=== PATIENT | male | born 1970 | race Caucasian/White ===

== ENCOUNTER 2025-04-19 14:06 | Inpatient (IN) | payer BC, SELFPAY ==
--- NOTE | ~2025-04-19 | CT_ITS ---
CLINICAL HISTORY: regional lymphadenopathy on A P CT r o malignancy CT chest without contrast Comparison: Prior CTs of abdomen and pelvis most recently on 04/19/2025 Findings: Limited evaluation of soft tissues and solid organs in the absence of IV contrast. No focal airspace consolidation. No pleural effusion. No pneumothorax. Mild bibasilar linear atelectatic changes. Central airways are patent. No masses or suspicious pulmonary nodules. Normal heart size. No pericardial effusion. No significant coronary artery calcifications. Normal caliber thoracic aorta and central pulmonary arteries. Unremarkable esophagus. No acute findings within visualized lower neck. Abdominal findings are described in detail in separate accompanying report. No acute osseous abnormality. No lytic or sclerotic osseous lesions. Impression: 1. No acute cardiopulmonary abnormality identified within limitation of this noncontrast exam. 2. Additional findings as above. This document has been electronically signed by: David Brennan MD on 04/19/2025 22:24:12
--- NOTE | ~2025-04-19 | CT_ITS ---
CLINICAL HISTORY: Painless jaundice ?pancreatic mass CT abdomen and pelvis with contrast Comparison: None provided Findings: No acute findings within visualized lung bases. Liver enhances homogeneously. No focal liver lesions. Adrenal glands and kidneys are unremarkable. Gallbladder is unremarkable. No intra or extrahepatic ductal dilation. Pancreas enhances homogeneously. No ductal dilation. There is moderately extensive stranding with associated regional lymphadenopathy in the central/left paramidline mid-abdominal mesentery mostly centered around the duodenal jejunal junction but also extending towards the pancreatic head/uncinate process. Borderline splenic enlargement measuring up to 14.7 cm. No free air or free fluid. Patent hepatic, portal, splenic and superior mesenteric veins. Unremarkable abdominal aorta and all visualized major mesenteric branches. Nondistended stomach. Normal caliber small bowel. No obstruction. Colon is unremarkable. Suggestion of prior appendectomy. Unremarkable urinary bladder. Normal-sized prostate. No acute osseous abnormality. No lytic or sclerotic osseous lesions. Impression: 1. Moderately extensive stranding within central/left paramidline mid-abdominal mesentery with associated regional lymphadenopathy. These findings are nonspecific and of indeterminate etiology. Differential diagnostic considerations include infectious or inflammatory mesenteritis however neoplastic infiltration may have similar appearance in the appropriate clinical setting and therefore can not be entirely excluded. Given the proximity of these findings to the head of the pancreas, correlation with pancreatic enzymes should be considered to exclude possibility of acute pancreatitis. Additional diagnostic considerations include portal hypertension, CHF or renal failure. If clinically indicated, further evaluation with abdominal ultrasound may be considered. No evidence of portal or mesenteric venous thrombosis. At minimum, close continued imaging follow-up with CT is recommended to evaluate for stability and evolution of these findings. This document has been electronically signed by: David Brennan MD on 04/19/2025 20:43:25
--- NOTE | ~2025-04-19 | MR_ITS ---
EXAMINATION: MR ABDOMEN WITHOUT AND WITH CONTRAST CLINICAL INFORMATION: Abnormal liver function tests. Lymphadenopathy. COMPARISON: Correlated to CT dated April 19, 2025 TECHNIQUE: MR abdomen was performed without and with use of 9.7 mL intravenous (Gadavist) gadolinium contrast. Postcontrast images are performed in multiphase dynamic sequences. Imaging was performed in 3 planes. No reported immediate complications FINDINGS: LUNG BASES: No enhancing mass. LIVER, GALLBLADDER, AND BILIARY TREE: Liver measures 15 cm. No enhancing lesion. Main portal vein and hepatic veins and intrahepatic portion of the IVC are patent. No intrahepatic biliary ductal dilatation. Gallbladder is fluid-filled without distention. No pericholecystic fluid collection or gallbladder wall thickening. Common bile duct measures 3 mm. PANCREAS: No focal mass. No peripancreatic fluid collection. No main pancreatic ductal dilatation. Reduced volume of the parenchyma. SPLEEN: 12 cm. Accessory spleen. No focal mass. ADRENAL GLANDS: No nodular lesions. KIDNEYS AND URETERS: Subcentimeter cyst mostly in the left kidney. Normal enhancement pattern of the parenchyma. No focal mass. No hydronephrosis. The ureters are not dilated. GASTROINTESTINAL TRACT: Abundant stool, large intestine. No intestinal obstruction pattern. Food contents in the stomach. No ascites. ABDOMINAL WALL: Diastases abdominal rectus muscles and the proper umbilical region and likely status post mesh. LYMPH NODES: Prominent mesenteric lymph nodes with the edema pattern. VASCULAR: No aneurysm or dissection, abdominal aorta. OSSEOUS STRUCTURES: Multilevel thoracolumbar spondylosis. Probable intraosseous hemangioma at L1 and L2. Disc herniation versus disc bulging at L5-S1 no fully evaluated. MR/MR abdomen wo/w con IMPRESSION: Mesenteric panniculitis. There is a lengthy differential diagnostic considerations which include lymphoproliferative disorder such as lymphoma among other etiologies. No enhancing mass, hepatic or splenic. Splenomegaly, mild. Electronically signed by: Hair Oliver MD 04/21/2025 01:22 PM EDT
--- NOTE | ~2025-04-19 | US_ITS ---
EXAMINATION: US ABDOMEN LIMITED HISTORY: ?resolving pancreatitis, abnl LFT's, R/O gallstones TECHNIQUE: Real-time grayscale ultrasound imaging of the liver, gallbladder, and pancreas was performed and images were reviewed. COMPARISON: Correlation is made with a CT of the abdomen with contrast dated 04/19/2025. FINDINGS: Liver: The right lobe of the liver measures 15.8 cm in size. The left lobe of the liver measures 10.6 cm in size. The liver demonstrates increased echotexture, consistent with steatosis. No focal mass or intrahepatic biliary ductal dilatation is identified. There is normal hepatopedal flow in the portal vein. Gallbladder and biliary tree: There is a 3 mm gallbladder polyp. The gallbladder is otherwise unremarkable, without evidence of calculi, wall thickening, or pericholecystic fluid. There is no sonographic Rooney sign. The common bile duct measures 8 mm in. Pancreas: The pancreatic head, neck, and body are unremarkable. The pancreatic tail is obscured by bowel gas. There is no free fluid in the right upper quadrant. US/US abdomen limited IMPRESSION: 3 mm gallbladder polyp. No evidence of cholelithiasis. Mild prominence of the common bile duct. If there is clinical concern for choledocholithiasis, MRCP could be performed. Electronically signed by: Jacky Brown MD 04/21/2025 09:56 AM EDT
[2025-04-19 14:14] VITALS: BP 130/78; PULSE 88; RESP 16; TEMP 36.6; O2SAT 98; BMI 34.8
--- NOTE | 2025-04-19 14:14 | ED.GENADULT ---
HPI - General Adult General Chief complaint: Recheck/Abnormal Lab/Rx Stated complaint: Liver levels to high, DR patel, headache, chills, Time Seen by Provider: 04/19/25 17:36 Source: patient Mode of arrival: ambulatory Limitations: no limitations History of Present Illness ED Provider: HPI narrative: Patient with no significant past medical history no history of any liver disease no history of alcohol use apparently had vomiting and diarrhea last week which lasted for 2 days after that patient has still been feeling weak with poor appetite that is why he went to see his PCP who did the labs which showed elevated liver enzymes patient's have some epigastric discomfort after the vomiting started otherwise prior to this episode patient never had any GI symptoms no weight loss no family history of pancreatic cancer patient has had normal bowel movements no melena Related Data Home Medications ?Medication ?Instructions ?Recorded ?Confirmed atorvastatin 10 mg tablet 10 mg PO DAILY 04/19/25 04/19/25 ezetimibe 10 mg tablet 10 mg PO DAILY 04/19/25 04/19/25 glipizide 10 mg tablet, extended 10 mg PO BID 04/19/25 04/19/25 release 24 hr lisinopril 5 mg tablet 5 mg PO DAILY 04/19/25 04/19/25 meloxicam 7.5 mg tablet 7.5 mg PO DAILY 04/19/25 04/19/25 wbwvrxxo-ls-ninfi 300 mcg-K 60 1 tab PO DAILY 04/19/25 04/19/25 mcg-lycop 600 mcg-lutein 300 mcg tablet (Centrum Silver Men) omeprazole 40 mg capsule,delayed 40 mg PO DAILY@0630 04/19/25 04/19/25 release pioglitazone 30 mg tablet 30 mg PO DAILY 04/19/25 04/19/25 Allergies Allergy/AdvReac Type Severity Reaction Status Date / Time No Known Allergies Allergy Verified 04/19/25 14:16 Review of Systems Review of Systems: Yes all other systems are reviewed and are negative PMFSH Past Medical History Medical History (Updated 04/20/25 @ 01:43 by Kyree Tovar MD) Type 2 diabetes mellitus without complications Class 2 obesity HLD (hyperlipidemia) HTN (hypertension) Social History Social History Advance Directives: No Advance Directives Information Provided: Yes Do you have a plan to hurt others: No Plan Physical Exam ED Vital Signs: Vital Signs - 24 hr 04/19/25 14:14 04/19/25 16:29 04/19/25 18:11 Temperature 97.8 F 98.5 F Pulse Rate 88 77 78 Respiratory Rate 16 18 18 Blood Pressure 130/78 127/74 122/74 Pulse Oximetry 98 98 94 Oxygen Delivery Method Room Air Room Air 04/19/25 19:31 Temperature 98.1 F Pulse Rate 75 Respiratory Rate 18 Blood Pressure 118/70 Pulse Oximetry 96 Oxygen Delivery Method Room Air BMI result Body Mass Index 34.8 Appearance: Alert. Oriented X3. No acute distress. Eyes: Icterus++ ENT: Pharynx normal. Oral Mucosa moist Neck: Normal inspection. Neck supple. CVS: Normal heart rate and rhythm. Pulses normal. Respiratory: No respiratory distress. Equal air entry bilateral, no wheezing/rales/rhonchi Abdomen: Soft and mild epigastric tenderness, . Bowel sounds are present, no mass palpable, no CVA tenderness Skin: Skin warm and dry. Normal skin color. Normal skin turgor. Extremities: No lower extremity edema. No calf tenderness Neuro: Oriented X 3. No motor deficit. No sensory deficit.No cerebellar signs , cranial nerves II-XII intact Course Course Course Narrative: This is a rapid medical exam performed by Sissy Merchant NP: Additional HPI, ROS, PE not included below will be deferred to primary provider. Patient is a 55-year-old male referred to the ED by PCP for elevated LFTs, alk phos. Patient states last Wed had N/V/D for a few days, ongoing lightheadedness, sweats, chills. Plan: repeat labs Medications Administered Generic Name Dose Route Start Last Admin Trade Name Freq PRN Reason Stop Dose Admin Enoxaparin Sodium 40 mg 04/19/25 22:15 04/19/25 22:33 Enoxaparin Sodium 40 Mg/0.4 Ml Syringe SUBCUT 40 mg Q24H DUSTIN Administration Sodium Chloride 3 ml 04/20/25 00:00 04/20/25 00:17 0.9 % Sodium Chloride Flush 3 Ml Syringe IVFLUSH Not Given QSHIFT DUSTIN Discontinued Medications Generic Name Dose Route Start Last Admin Trade Name Freq PRN Reason Stop Dose Admin Iohexol 85 ml 04/19/25 19:59 04/19/25 19:59 Iohexol 350 Mg/Ml 100 Ml Infus..Btl IV 04/19/25 20:00 85 ml ONCE ONE Administration Potassium Chloride 40 meq 04/19/25 21:37 04/19/25 21:54 Potassium Chloride Packet 20 Meq Packet PO 04/19/25 21:38 40 meq ONCE ONE Administration Medical Decision Making Medical Decision Making [facility] Narrative: Patient with direct hyperbilirubinemia etiology not clear CT scan showed nonspecific changes in the mesentery with lymphadenopathy no pancreatic mass noticed will admit patient for further evaluation may need MRI and GI consultation for acute cause of hyperbilirubinemia Differential Diagnosis Differential Diagnoses: The differential diagnosis associated with the presentation includes Autoimmune hepatitis/pancreatic cancer/metastatic etiology Admission/Observation Consideration of admission/observation: Escalation of care including admission/observation considered Consult Healthcare Provider Management of the patient was discussed with: Hospitalist Lab Data [facility] Lab Attestation statement: I reviewed the patient's lab results. 04/19/25 14:28 04/19/25 14:28 Labs: Lab Results 04/19/25 04/19/25 04/19/25 Range/Units 14:28 18:50 19:27 WBC 3.8 L (4.8-10.8) X10*3/uL RBC 4.82 (4.60-5.80) X10*6/uL Hgb 14.5 (14.0-18.0) g/dl Hct 39.2 L (42.0-52.0) % MCV 81.3 (80.0-98.0) fL MCH 30.1 (27.0-33.0) pg MCHC 37.0 H (31.0-36.0) g/dl RDW 13.0 (11.0-16.0) % Plt Count 161 (160-400) X10*3/uL MPV 9.3 L (9.4-12.4) fL Immature Gran % (Auto) 0.8 H (0.0-0.4) % Neut % (Auto) 67.6 (45-73) % Lymph % (Auto) 19.7 L (20-40) % [place] % (Auto) 8.2 (2-11) % Eos % (Auto) 3.4 (0-4) % Baso % (Auto) 0.3 (0-2) % Lymph # (Auto) 0.8 L (1.2-4.9) X10*3/uL [place] # (Auto) 0.3 (0.1-1.2) X10*3/uL Eos # (Auto) 0.1 (0.0-0.4) X10*3/uL Baso # (Auto) 0.0 (0.0-0.2) X10*3/uL Abs Immat Gran (auto) 0.03 (0.00-0.03) X10*3/uL Absolute Neuts (auto) 2.6 (2.0-8.3) x10*3/uL Absolute Nucleated RBC 0.000 (0.0-0.012) X10*3/uL Nucleated RBC % (auto) 0.0 (0.0-0.2) /100WBC PT 11.8 (10.9-12.4) SEC INR 1.0 (0.9-1.1) APTT 27.0 (26.7-34.1) SEC Sodium 140 (135-145) mmol/L Potassium 3.1 L (3.3-5.1) mmol/L Chloride 102 (96-108) mmol/L Carbon Dioxide 29 (22-29) mmol/L Anion Gap 12 (12-20) BUN 10 (9-16) mg/dL Creatinine 0.63 (0.5-1.4) mg/dL Estim Creat Clear Calc 164.6 Estimated GFR > 60 Random Glucose 182 H (60-115) mg/dL Calcium 8.8 (8.4-10.2) mg/dL Total Bilirubin 6.7 H (0.0-1.0) mg/dL Direct Bilirubin 5.1 H (0.0-0.5) mg/dL AST 486 H (5-37) U/L ALT 511 H (0-40) U/L Alkaline Phosphatase 565 H (39-117) U/L Ammonia 37 (13-55) umol/L Lactate Dehydrogenase 648 H (118-273) U/L Total Creatine Kinase 681 H (38-174) U/L Total Protein 6.5 (6.5-8.0) g/dL Albumin 3.6 (3.5-5.0) g/dL Lipase 81 H (8-78) U/L Independent Interpretation I performed an independent interpretation of an: CT Scan Radiology Impression Discussion of test interpretation with radiology: I have reviewed the radiologist's reading. Radiologist Impression: [address] [address] [address] Scan Report Signed Patient: Xavi Hutton MR#: [id number] : 1970 Acct:[id number] Age/Sex: 55 / M ADM Date: 04/19/25 Loc: HO.ED Attending Dr: Ordering Physician: Kyree Tovar MD Date of Service: 04/19/25 Procedure(s): CT abdomen pelvis w IV con Accession Number(s): [id number] cc: THEO KAISER MD; Kyree Tovar MD~ Report Number: [id number]: Total DLP = 832.00 mGy-cm CLINICAL HISTORY: Painless jaundice ?pancreatic mass CT abdomen and pelvis with contrast Comparison: None provided Findings: No acute findings within visualized lung bases. Liver enhances homogeneously. No focal liver lesions. Adrenal glands and kidneys are unremarkable. Gallbladder is unremarkable. No intra or extrahepatic ductal dilation. Pancreas enhances homogeneously. No ductal dilation. There is moderately extensive stranding with associated regional lymphadenopathy in the central/left paramidline mid-abdominal mesentery mostly centered around the duodenal jejunal junction but also extending towards the pancreatic head/uncinate process. Borderline splenic enlargement measuring up to 14.7 cm. No free air or free fluid. Patent hepatic, portal, splenic and superior mesenteric veins. Unremarkable abdominal aorta and all visualized major mesenteric branches. Nondistended stomach. Normal caliber small bowel. No obstruction. Colon is unremarkable. Suggestion of prior appendectomy. Unremarkable urinary bladder. Normal-sized prostate. No acute osseous abnormality. No lytic or sclerotic osseous lesions. Impression: 1. Moderately extensive stranding within central/left paramidline mid-abdominal mesentery with associated regional lymphadenopathy. These findings are nonspecific and of indeterminate etiology. Differential diagnostic considerations include infectious or inflammatory mesenteritis however neoplastic infiltration may have similar appearance in the appropriate clinical setting and therefore can not be entirely excluded. Given the proximity of these findings to the head of the pancreas, correlation with pancreatic enzymes should be considered to exclude possibility of acute pancreatitis. Additional diagnostic considerations include portal hypertension, CHF or renal failure. If clinically indicated, further evaluation with abdominal ultrasound may be considered. No evidence of portal or mesenteric venous thrombosis. At minimum, close continued imaging follow-up with CT is recommended to evaluate for stability and evolution of these findings. Discharge Plan Discharge Clinical Impression: Elevated LFTs, Painless jaundice Patient Disposition: Admitted As Inpatient
[2025-04-19 14:39] LABS: MANUAL DIFF FLAG NO
[2025-04-19 14:41] LABS: Hematocrit 39.2 % (42.0-52.0); Hemoglobin 14.5 g/dl (14.0-18.0); Imm Gran Abs Auto 0.03 X10*3/uL (0.00-0.03); Imm Gran Pct Auto 0.8 % (0.0-0.4); Lymphocytes Absolute Auto 0.8 X10*3/uL (1.2-4.9); Mean Corpuscular HGB Conc 37.0 g/dl (31.0-36.0); Mean Corpuscular Hemoglobin 30.1 pg (27.0-33.0); Mean Corpuscular Volume 81.3 fL (80.0-98.0); NRBC Abs Auto 0.000 X10*3/uL (0.0-0.012); NRBC Pct Auto 0.0 /100WBC (0.0-0.2); Platelet Count 161 X10*3/uL (160-400); Red Blood Count 4.82 X10*6/uL (4.60-5.80); White Blood Count 3.8 X10*3/uL (4.8-10.8)
[2025-04-19 14:55] LABS: Alanine Aminotransferase 511 U/L (0-40); Albumin Level 3.6 g/dL (3.5-5.0); Alkaline Phosphatase 565 U/L (39-117); Anion Gap 12 (12-20); Aspartate Amino Transferase 486 U/L (5-37); Blood Urea Nitrogen 10 mg/dL (9-16); Calcium 8.8 mg/dL (8.4-10.2); Carbon Dioxide 29 mmol/L (22-29); Chloride 102 mmol/L (96-108); Creatinine Clr Calc Pharmacy 164.6; Estimated Glomerular Filt Rate > 60; Lipase 81 U/L (8-78); Potassium 3.1 mmol/L (3.3-5.1); Sodium 140 mmol/L (135-145); Total Protein 6.5 g/dL (6.5-8.0)
[2025-04-19 16:29] VITALS: BP 127/74; PULSE 77; RESP 18; TEMP 36.9; O2SAT 98
--- OUTSIDE RECORDS SUMMARY | 2025-04-19 16:53 | XMS_ITS ---
Author Name [facility] Organization Unknown Care Team Organization Name Specialty Phone Email Start Date End Da te [facility] Nisha Dumont Primary Care 01/12/2023 024 [facility] Thea Cote MD Primary Care 11/12/2022 04/25/2024 [facility] Anita Pratt Primary Care 07/15/2022
[2025-04-19 18:11] VITALS: BP 122/74; PULSE 78; RESP 18; O2SAT 94
--- NOTE | 2025-04-19 18:15 | MHC.EDTECH ---
PATIENT WAS ASKED IF HE HAS ANY FAMILY THAT FROM PANCREATIC CANCER AND THE PATIENT SAID NO ...BUT THE PATIENT SAID HIS FATHER OF PANCREATIC CANCER IN 2006
[2025-04-19 19:01] LABS: Ammonia 37 umol/L (13-55)
[2025-04-19 19:31] VITALS: BP 118/70; PULSE 75; RESP 18; TEMP 36.7; O2SAT 96
[2025-04-19 19:39] LABS: INTERNATIONAL NORM RATIO 1.0 (0.9-1.1); Prothrombin Time 11.8 SEC (10.9-12.4)
[2025-04-19 19:42] LABS: Partial Thromboplastin Time 27.0 SEC (26.7-34.1)
[2025-04-19] MEDS: iohexoL 350 MG/ML 100 ML INFUS..BTL 85 ML IV (19:59)
--- NOTE | 2025-04-19 21:48 | PHA.MEDREC ---
Addendum entered by Andrea Bolaños PharmD 04/19/25 21:56: reviewed Original Note: Pharmacy Consult ? Medication Reconciliation Pharmacy has completed the medication reconciliation. Patient had a list of medications on his phone. Everything matched claim history.
[2025-04-19] MEDS: Potassium Chloride Packet 20 MEQ PACKET 40 MEQ PO (21:54)
--- NOTE | 2025-04-19 22:16 | P.HPHOSP_ITS ---
History of Present Illness Date of Service: 04/19/25 Attending physician on admission: Ran Kiser Chief Complaint: abnormal labs Patient is a 55-year-old male with a past medical history significant for type 2 diabetes, hypertension, hyperlipidemia and class 2 obesity, who presented to the ED due to abnormal labs with his PCP. Reports about 1 week ago he had vomiting and diarrhea for 1 day and since has had poor appetite and continued weakness. The diarrhea and vomiting have subsided however he has not been able to return to his normal diet due to his decreased appetite. He reports yesterday he started having epigastric discomfort, mostly just with palpation. He denies any weight loss. He also notes significant sweats since the beginning of his symptoms, his notes that he will put on a clean certain 10 minutes later his shirt is soaked. He also experiences chills. He reports 2 days ago he was having dark-colored urine and has been working on increasing fluid intake as he feels his urine was concentrated. He also has developed painless jaundice, specifically scleral icterus. He denies heavy alcohol use, only social occasional. No family history of pancreatic cancer. No hx of IDVU, no recent travel. Review of Systems 2 Constitutional: Constitutional: Denies body ache(s), Reports chills, Reports fatigue, Denies headache(s), Reports lethargy and Denies weight loss C omments: sweats ENT: Denies headache(s), Denies nasal congestion, Denies nasal discharge and Denies sore throat Cardiovascular: Cardiovascular: Denies chest pain, Denies rapid heart rate, Denies leg edema, Denies lightheadedness and Denies dyspnea Respiratory: Respiratory: Denies chest congestion, Denies cough, Denies dyspnea and Denies wheezing Gastrointestinal: Gastrointestinal: Reports as per HPI Genitourinary: Genitourinary: Denies dysuria and Denies urinary frequency Musculoskeletal: Musculoskeletal: Denies back pain, Denies muscle cramps and Denies muscle weakness Integumentary/Breasts: Skin/Breast: Denies rash Neurologic: Denies confusion and Denies headache(s) Psychiatric: Psychiatric: Denies confusion Endocrine: Endocrine: Reports fatigue Hematologic/Lymphatic: Hematologic/Lymphatic: Denies easy bleeding and Denies easy bruising Allergic/Immunologic: Allergic/Immunologic: Denies wheezing [facility] Medical History (Updated 04/19/25 @ 22:23 by Kathrin Hollins PA-C) Type 2 diabetes mellitus without complications Class 2 obesity HLD (hyperlipidemia) HTN (hypertension) Social History Advance Directives: No Advance Directives Information Provided: Yes Do you have a plan to hurt others: No Plan Meds Allergies Allergy/AdvReac Type Severity Reaction Status Date / Time No Known Allergies Allergy Verified 04/19/25 14:16 Active Medications: Current Medications Acetaminophen (Acetaminophen 325 Mg Tablet) 650 mg PO Q6H PRN PRN Reason: Pain, Mild 1-3,fever,headache Calcium Carbonate (Calcium Carbonate 750 Mg Tab.Chew) 750 mg PO Q4H PRN PRN Reason: Heartburn Dextrose (Dextrose 50 % 25 Gm/50 Ml Syringe) 25 gm IVPUSH Q15M PRN; Protocol PRN Reason: per Hypoglycemia Standing Ord. Enoxaparin Sodium (Enoxaparin Sodium 40 Mg/0.4 Ml Syringe) 40 mg SUBCUT Q24H DUSTIN Glucose (Glucose Gel 15 Gm Gel..Gram.) 15 gm PO Q15M PRN; Protocol PRN Reason: per Hypoglycemia Standing Ord. Insulin Human Lispro (Insulin Lispro 100 Unit/Ml 3 Ml Vial) 0 unit SUBCUT QIDACHS [facility]; Protocol Lisinopril (Lisinopril 5 Mg Tablet) 5 mg PO DAILY DUSTIN; Protocol Magnesium Hydroxide (Milk Of Magnesia 30 Ml Oral.Susp) 30 ml PO DAILY PRN PRN Reason: Constipation Melatonin (Melatonin 3 Mg Tablet) 6 mg PO BEDTIME PRN PRN Reason: Insomnia Omeprazole (Omeprazole 40 Mg Capsule.Dr) 40 mg PO DAILY@0630 [facility] Ondansetron HCl (Ondansetron Hcl 4 Mg/2 Ml Vial) 4 mg IVPUSH Q8H PRN PRN Reason: Nausea and Vomiting Oxycodone HCl (Oxycodone Hcl Immed Release 5 Mg Tablet) 5 mg PO Q6H PRN PRN Reason: Pain, Severe (Pain Scale 7-10) Sodium Chloride (0.9 % Sodium Chloride Flush 3 Ml Syringe) 3 [facility] Home Medications ?Medication ?Instructions ?Recorded ?Confirmed ?Last Taken ?Type atorvastatin 10 mg tablet 10 mg PO DAILY 04/19/2504/0704/19/25 History ezetimibe 10 mg tablet 10 mg PO DAILY 04/19/2504/0704/19/25 History glipizide 10 mg tablet, extended 10 mg PO BID 04/19/25 04/19/25 04/19/25 History release 24 hr lisinopril 5 mg tablet 5 mg PO DAILY 04/19/2504/1904/19/25 History meloxicam 7.5 mg tablet 7.5 mg PO DAILY 04/19/2504/19/25 History xjqzoiol-cp-hvwzv 300 mcg-K 60 1 tab PO DAILY 04/19/25 04/19/25 04/19/25 History mcg-lycop 600 mcg-lutein 300 mcg tablet (Centrum [place] Men) omeprazole 40 mg capsule,delayed 40 mg PO DAILY@0630 0 04/19/25 04/19/25 04/19/25 History release pioglitazone 30 mg tablet 30 mg PO DAILY 04/19/2504/0704/19/25 History Physical Exam 2 Vital Signs and Narrative: Vital Signs: Last Vital Signs Temp 98.1 F 04/19/25 19:31 Pulse 75 04/19/25 19:31 Resp 18 04/19/25 19:31 BP 118/70 04/19/25 19:31 Pulse Ox 96 04/19/25 19:31 O2 Del Method Room Air 04/19/25 19:31 BMI result Body Mass Index 34.8 General: AOx3, no acute distress, seen with who is technical editor here Resp: CTA bilaterally CVS: S1, S2, RRR GI: +BS, mild tenderness epigastric region, no distention. scleral icterus. Skin: Warm, dry Neuro: Cranial nerves II-XII grossly intact bilaterally. Motor grossly intact bilaterally Extremities: No LE edema Psych: Appropriate affect Const: General: No confusion Orientation/consciousness: No confusion Neuro: General: No confusion Results Labs 04/19/25 14:28 04/19/25 14:28 Labs: Laboratory Results - last 24 hr 04/19/25 04/19/25 04/19/25 14:28 18:50 19:27 MCV 81.3 MCH 30.1 MCHC 37.0 H RDW 13.0 Plt Count 161 MPV 9.3 L Immature Gran % (Auto) 0.8 H Neut % (Auto) 67.6 Lymph % (Auto) 19.7 L [place] % (Auto) 8.2 Eos % (Auto) 3.4 Baso % (Auto) 0.3 Lymph # (Auto) 0.8 L [place] # (Auto) 0.3 Eos # (Auto) 0.1 Baso # (Auto) 0.0 Abs Immat Gran (auto) 0.03 Absolute Neuts (auto) 2.6 Absolute Nucleated RBC 0.000 Nucleated RBC % (auto) 0.0 PT 11.8 INR 1.0 APTT 27.0 Anion Gap 12 Estim Creat Clear Calc 164.6 Estimated GFR > 60 Random Glucose 182 H Calcium 8.8 Total Bilirubin 6.7 H Direct Bilirubin 5.1 H AST 486 H ALT 511 H Alkaline Phosphatase 565 H Ammonia 37 Lactate Dehydrogenase 648 H Total Creatine Kinase 681 H Total Protein 6.5 Albumin 3.6 Lipase 81 H Assessment and Plan (1) Elevated LFTs: Status: Acute (2) Painless jaundice: Status: Acute (3) Mesenteric lymphadenopathy: Status: Acute (4) Acute hypokalemia: Status: Acute (5) Class 2 obesity: Status: Acute Plan Patient is a 55-year-old male with a past medical history significant for type 2 diabetes, hypertension, hyperlipidemia and class 2 obesity, who presented to the ED due to abnormal labs with his PCP. elevated LFTS, painless jaundice, mesenteric lymphadenopathy - recent GI illness, sx resolved but continued weakness and poor appetite - seen by PCP today with significantly elevated LFTs, advised to go to ED - AST 486, ALT 511, alk phos 565, t bili 6.7 ,d bili 5.1, LDH 668, lipase 81 - no leukocytosis or fever, tolerating PO without pain or nausea - A/P CT with Moderately extensive stranding within central/left paramidline mid-abdominal mesentery with associated regional lymphadenopathy. These findings are nonspecific and of indeterminate etiology. Differential diagnostic considerations include infectious or inflammatory mesenteritis however neoplastic infiltration may have similar appearance in the appropriate clinical setting and therefore can not be entirely excluded. Given the proximity of these findings to the head of the pancreas, correlation with pancreatic enzymes should be considered to exclude possibility of acute pancreatitis. Additional diagnostic considerations include portal hypertension, CHF or renal failure. If clinically indicated, further evaluation with abdominal ultrasound may be considered. No evidence of portal or mesenteric venous thrombosis. At minimum, close continued imaging follow-up with CT is recommended to evaluate for stability and evolution of these findings. - hepatitis pain ordered - CT chest to assess for malignancy - GI consult - follow CBC and CMP acute hypokalemia - K 3.1 - given 40meq PO K - repeat lytes in AM T2DM - hold PO DM meds - sliding scale insulin - diabetic diet HTN - continue lisinopril HLD - hold statin and ezetimibe due to elevated LFTs class 2 obestiy - BMI 34.8 - weight loss encouraged full code VTE prophy: lovenox Patient with elevated LFTs, painless jaundice and acute mesenteric lymphadenopathy, requiring admission for at least 2 midnight stay for further evaluation and retail analytics manager consultation. Quality Stroke Does the patient have a stroke diagnosis?: No VTE Prior VTE?: No VTE Risk Level:: Medical - moderate - high VTE Device Contraindication: Treatment Not Indicated VTE Drug Contraindication: N/A - Med Ordered
[2025-04-19 22:32] VITALS: BP 118/70; PULSE 79
--- NOTE | 2025-04-19 22:37 | PC.NURSE ---
Addendum entered by Jennifer Negrete RN 04/19/25 22:38: LR note in error Original Note: pt medicated per NOV. Lactated ringers d/c per order.
--- NOTE | 2025-04-19 22:49 | PC.NURSE ---
verbal report given to RAE Montelongo in overflow.
[2025-04-20] VITALS (9 sets, daily range): BP systolic 115–142; BP diastolic 64–80; PULSE 62–80; RESP 16–20; TEMP 36.1–37; O2SAT 95–99
[2025-04-20 01:44] LABS: Carcinoembryonic Antigen 1.90 ng/mL
[2025-04-20 04:36] LABS: HBS Num1 0.00 mIU/mL (0-7.99); HBc Num1 0.04 S/CO (0.00-0.79); HBsAGNum1 0.43 S/CO (0.00-0.99); Hepatitis A Antibody IgM 0.15 Index (0-0.79); Hepatitis B Surface Antigen Negative (Negative); ~HepC Num1 0.08 S/CO (0.00-0.79); ~Hepatitis A Antibody IgM Nonreactive (Nonreactive); ~Hepatitis B Surface Antibody NONREACTIVE (Nonreactive); ~Hepatitis C Antibody Nonreactive (Nonreactive)
[2025-04-20 05:43] LABS: Hematocrit 36.7 % (42.0-52.0); Hemoglobin 13.2 g/dl (14.0-18.0); Mean Corpuscular HGB Conc 36.0 g/dl (31.0-36.0); Mean Corpuscular Hemoglobin 29.9 pg (27.0-33.0); Mean Corpuscular Volume 83.2 fL (80.0-98.0); NRBC Abs Auto 0.000 X10*3/uL (0.0-0.012); NRBC Pct Auto 0.0 /100WBC (0.0-0.2); Platelet Count 165 X10*3/uL (160-400); Red Blood Count 4.41 X10*6/uL (4.60-5.80); White Blood Count 4.4 X10*3/uL (4.8-10.8)
[2025-04-20 05:52] LABS: Alanine Aminotransferase 529 U/L (0-40); Albumin Level 3.3 g/dL (3.5-5.0); Alkaline Phosphatase 580 U/L (39-117); Anion Gap 14 (12-20); Aspartate Amino Transferase 459 U/L (5-37); Blood Urea Nitrogen 10 mg/dL (9-16); Calcium 8.6 mg/dL (8.4-10.2); Carbon Dioxide 28 mmol/L (22-29); Chloride 103 mmol/L (96-108); Creatinine Clr Calc Pharmacy 140.1; Estimated Glomerular Filt Rate > 60; Potassium 3.5 mmol/L (3.3-5.1); Sodium 141 mmol/L (135-145); Total Protein 6.0 g/dL (6.5-8.0)
[2025-04-20 07:32] LABS: Glucose, Whole Blood 152 mg/dL (60-115)
[2025-04-20] MEDS: 0.9 % Sodium Chloride Flush 3 ML SYRINGE IVFLUSH (08:41)
--- NOTE | 2025-04-20 09:42 | P.PNIM_ITS ---
Subjective Subjective Date of Service: 04/20/25 Interval History: Patient was seen and examined and discussed with nursing, no overnight events. On exam he feels comfortable. Denies any abdominal pain or discomfort, no further vomiting or diarrhea. Labs reviewed, await GI input. Vital signs are stable. Patient reporting mild anxiety and insomnia Review of Systems Denies any shortness of breath, chest pain, dizziness, lightheadedness, abdominal pain or discomfort, nausea vomiting or diarrhea Physical Exam 2 Exam: Exam: CONST: Alert and oriented, in NAD. Well nourished HEENT: Normocephalic, atraumatic, MMM,Neck supple, scleral icterus. RESP: Lungs clear, RRR even and regular HEART:,RRR, S1, S2. No murmur, no edema GI:Abdomen Soft NT, ND. + BS times four :Deferred SKIN: Warm dry and intact, no visible lesions or rashes NEURO:CN II-XII Intact bilaterally, Sensation intact. Speech clear PSYCH: Normal affect Vital Signs: Vital Signs: Last Vital Signs Temp 97.9 F 04/20/25 09:36 Pulse 71 04/20/25 09:36 Resp 17 04/20/25 09:36 BP 133/68 04/20/25 09:36 Pulse Ox 96 04/20/25 09:36 O2 Del Method Room Air 04/20/25 09:36 BMI result Body Mass Index 34.8 Objective Data Active Medications Acetaminophen (Acetaminophen 325 Mg Tablet) 650 mg PO Q6H PRN PRN Reason: Pain, Mild 1-3,fever,headache Calcium Carbonate (Calcium Carbonate 750 Mg Tab.Chew) 750 mg PO Q4H PRN PRN Reason: Heartburn Dextrose (Dextrose 50 % 25 Gm/50 Ml Syringe) 25 gm IVPUSH Q15M PRN; Protocol PRN Reason: per Hypoglycemia Standing Ord. Enoxaparin Sodium (Enoxaparin Sodium 40 Mg/0.4 Ml Syringe) 40 mg SUBCUT Q24H [facility] Last Admin: 04/19/25 22:33 Dose: 40 mg Documented By: ARIANA Glucose (Glucose Gel 15 Gm Gel..Gram.) 15 gm PO Q15M PRN; Protocol PRN Reason: per Hypoglycemia Standing Ord. Insulin Human Lispro (Insulin Lispro 100 Unit/Ml 3 Ml Vial) 0 unit SUBCUT QIDACHS [facility]; Protocol Last Admin: 04/20/25 08:41 Dose: 2 unit Documented By: NEVIN Lisinopril (Lisinopril 5 Mg Tablet) 5 mg PO DAILY [facility]; Protocol Last Admin: 04/20/25 08:42 Dose: 5 mg Documented By: NEVIN Magnesium Hydroxide (Milk Of Magnesia 30 Ml Oral.Susp) 30 ml PO DAILY PRN PRN Reason: Constipation Melatonin (Melatonin 3 Mg Tablet) 6 mg PO BEDTIME PRN PRN Reason: Insomnia Omeprazole (Omeprazole 40 Mg Capsule.Dr) 40 mg PO DAILY@0630 [facility] Last Admin: 04/20/25 05:46 Dose: 40 mg Documented By: ANICETO Ondansetron HCl (Ondansetron Hcl 4 Mg/2 Ml Vial) 4 mg IVPUSH Q8H PRN PRN Reason: Nausea and Vomiting Oxycodone HCl (Oxycodone Hcl Immed Release 5 Mg Tablet) 5 mg PO Q6H PRN PRN Reason: Pain, Severe (Pain Scale 7-10) Sodium Chloride (0.9 % Sodium Chloride Flush 3 Ml Syringe) 3 ml IVFLUSH QSHIFT [facility] Last Admin: 04/20/25 08:41 Dose: 3 ml Documented By: NEVIN Labs 04/20/25 03:42 04/20/25 03:42 Labs: Laboratory Results - last 24 hr 04/19/25 04/19/25 04/19/25 14:28 18:50 19:27 MCV 81.3 MCH 30.1 MCHC 37.0 H RDW 13.0 Plt Count 161 MPV 9.3 L Immature Gran % (Auto) 0.8 H Neut % (Auto) 67.6 Lymph % (Auto) 19.7 L Aurora % (Auto) 8.2 Eos % (Auto) 3.4 Baso % (Auto) 0.3 Lymph # (Auto) 0.8 L Aurora # (Auto) 0.3 Eos # (Auto) 0.1 Baso # (Auto) 0.0 Abs Immat Gran (auto) 0.03 Absolute Neuts (auto) 2.6 Absolute Nucleated RBC 0.000 Nucleated RBC % (auto) 0.0 PT 11.8 INR 1.0 APTT 27.0 Anion Gap 12 Estim Creat Clear Calc 164.6 Estimated GFR > 60 POC Glucose Random Glucose 182 H Calcium 8.8 Total Bilirubin 6.7 H Direct Bilirubin 5.1 H AST 486 H ALT 511 H Alkaline Phosphatase 565 H Ammonia 37 Lactate Dehydrogenase 648 H Total Creatine Kinase 681 H Total Protein 6.5 Albumin 3.6 Lipase 81 H Carcinoembryonic Ag 1.90 Hepatitis A IgM Ab Hep Bs Antigen Hep Bs Antibody Hep B Core Total Ab Hepatitis C Ab (EIA) 04/19/25 04/20/25 04/20/25 20:57 03:42 07:12 MCV 83.2 MCH 29.9 MCHC 36.0 RDW 13.2 Plt Count 165 MPV 10.1 Immature Gran % (Auto) Neut % (Auto) Lymph % (Auto) Aurora % (Auto) Eos % (Auto) Baso % (Auto) Lymph # (Auto) Aurora # (Auto) Eos # (Auto) Baso # (Auto) Abs Immat Gran (auto) Absolute Neuts (auto) Absolute Nucleated RBC 0.000 Nucleated RBC % (auto) 0.0 PT INR APTT Anion Gap 14 Estim Creat Clear Calc 140.1 Estimated GFR > 60 POC Glucose 152 H Random Glucose 160 H Calcium 8.6 Total Bilirubin 5.5 H Direct Bilirubin AST 459 H ALT 529 H Alkaline Phosphatase 580 H Ammonia Lactate Dehydrogenase Total Creatine Kinase Total Protein 6.0 L Albumin 3.3 L Lipase Carcinoembryonic Ag Hepatitis A IgM Ab Nonreactive Hep Bs Antigen Negative Hep Bs Antibody NONREACTIVE Hep B Core Total Ab Nonreactive Hepatitis C Ab (EIA) Nonreactive Assessment and Plan (1) Elevated LFTs: Status: Acute (2) Mesenteric lymphadenopathy: Status: Acute Plan Patient is a 55-year-old male with a past medical history significant for type 2 diabetes, hypertension, hyperlipidemia and class 2 obesity, who presented to the ED due to abnormal labs with his PCP. Found to have elevated LFTs. Elevated LFTS, painless jaundice, mesenteric lymphadenopathy Recent GI illness, sx resolved but continued weakness and poor appetite AST 459, ALT 529, Alk phos 580, t bili 6.7 ,d bili 5.5, LDH 668, lipase 81 No leukocytosis or fever, tolerating PO without pain or nausea -A/P CT with Moderately extensive stranding within central/left paramidline mid-abdominal mesentery with associated regional lymphadenopathy. These findings are nonspecific and of indeterminate etiology. Differential diagnostic considerations include infectious or inflammatory mesenteritis however neoplastic infiltration may have similar appearance in the appropriate clinical setting and therefore can not be entirely excluded. Given the proximity of these findings to the head of the pancreas, correlation with pancreatic enzymes should be considered to exclude possibility of acute pancreatitis. Additional diagnostic considerations include portal hypertension, CHF or renal failure. If clinically indicated, further evaluation with abdominal ultrasound may be considered. No evidence of portal or mesenteric venous thrombosis. MRI ordered Hepatitis panel non reactive CT chest with no acute cardiopulmonary process GI consult placed- Dr. Clancy aware Follow labs Anxiety related to health concerns Patient does not wish to have any habit-forming medications We will order hydroxyzine 25 mg q.6 hours as needed. 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 Quality Stroke Does the patient have a stroke diagnosis?: No VTE Prior VTE?: No VTE Risk Level:: Medical - moderate - high VTE Device Contraindication: Treatment Not Indicated VTE Drug Contraindication: N/A - Med Ordered
[2025-04-20 11:22] LABS: Glucose, Whole Blood 162 mg/dL (60-115)
--- NOTE | 2025-04-20 12:57 | PC.NURSE ---
Assumed care of pt approx 0700, resting quietly in bed with no apparent s/s of distress. A/O x 3, ambulates independently with steady gait. Denies pain at this time. Tolerating regular diet, no N/V. Pending MRI abdomen/GI consult..
[2025-04-20 14:44] LABS: Glucose, Whole Blood 193 mg/dL (60-115)
--- NOTE | 2025-04-20 16:04 | MHC.CM.PN ---
PT REPORTS HE LIVES WITH HIS AND ADULT DAUGHTER HE IS INDEPENDENT WITH CARE AND HAS NO DME DECLINES A HCP STATING HE MAY ALREADY HAVE ONE PCP: [facility] DCP: HOME NO SERVICES TO TRANSPORT
[2025-04-20 16:23] LABS: Glucose, Whole Blood 198 mg/dL (60-115)
--- NOTE | 2025-04-20 18:24 | PM.EVENT ---
Event Note Date of Service: 04/20/25 Event Note: GI Consult-Full note dictated-History from patient and at the bedside, and the EMR. Imp: I suspect this reflects a resolving pancreatitis(? Etiology) from 1 week ago and now with resolution of his residual GI symptoms, a CT with changes of a probable resolving pancreatitis, and a minimally elevated lipase. The elevated LFT's, which are also improving, can also be from a resolving pancreatitis due to transient biliary obstruction from pancreatic edema or possibly having passed a CBD stone. He appears quite well at the present time. He is tolerating food, his abdomen is benign, and he has been afebrile. Rec: F/U imaging with MRI/MRCP to assess for CBD stone or pancreatic tumor(his father of pancreatic cancer in his 60's) as the cause of his presentation, RUQ U/S to R/O gallstones that may not have been seen on the CT, F/U labs in AM including Triglyceride levels, and observe. If things remain stable with improving labs and tolerating his diet he should be able to go home tomorrow after the MRI and U/S. I could then follow him in the office and repeat a CT in 2-3 months to be sure things have returned to normal in regard to the inflammation and lymphadenopathy. He should hold his statin med until the LFT's normalize as well. D/W patient and in detail. They are comfortable with this plan. Thanks Time Spent With Patient Time: Total time managing care of this patient today ____ minutes.
[2025-04-20 20:29] LABS: Glucose, Whole Blood 205 mg/dL (60-115)
--- NOTE | 2025-04-20 20:56 | PC.NURSE ---
pt medicated per mar, resting in bed. no sign of distress.
--- NOTE | 2025-04-21 01:15 | PC.NURSE ---
pt sleeping at this time.
--- NOTE | 2025-04-21 03:30 | MHC.EDTECH ---
This tech took over care of pt at 0300am, rounds completed,patient is sleeping,resp rate WNL, call kwan within reach
[2025-04-21] MEDS: 0.9 % Sodium Chloride Flush 3 ML SYRINGE IVFLUSH ×2 (05:48→08:46)
--- NOTE | 2025-04-21 05:48 | PC.NURSE ---
medicated per mar
[2025-04-21 06:00] VITALS: BP 119/77; PULSE 76; RESP 18; TEMP 36.6; O2SAT 97
--- NOTE | 2025-04-21 06:11 | MHC.EDTECH ---
Hourly rounds and vitals completed, pt is resting quietly at this time,call kwan in reach
--- NOTE | 2025-04-21 06:58 | CONS_ITS ---
DATE OF SERVICE: 04/20/2025 REASON FOR CONSULTATION: Abdominal pain, elevated LFTs, and abnormal CT scan of abdomen. HISTORY OF PRESENT ILLNESS: History has been obtained from the patient, his who was at the bedside, and the medical record. The patient is a 55-year-old male who was in his usual state of health up until April 12 when he was awakened from sleep with fairly acute onset of diffuse abdominal discomfort, vomiting, and some diarrhea. He had gone to sleep feeling well. He denies any chronic GI complaints. Prior to that evening, he denies any recent travel, antibiotic use, nor ill contacts. He does not use any significant nor regular amounts of alcohol. He describes that after his acute symptoms resolved in about 24 hours, he was left with some residual abdominal discomfort, some darkened urine, and some anorexia. The symptoms gradually improved, although he was still having some abdominal tenderness and discomfort yesterday, which prompted him to go see his primary care provider. He was seen in the office and had laboratories done, which revealed elevated LFTs and was instructed to come to the ER. Prior to last week, he was feeling well with good appetite. He denies any significant heartburn or dysphagia. He denies any chronic abdominal pain. He has not noticed any previous history of jaundice in himself. He denies any history of liver disease in himself or family members. His bowel movements have been regular without any bleeding. During the acute episode of vomiting and diarrhea last week, he did not notice any sign of hematochezia, melena, hematemesis, nor coffee-ground emesis. The patient does have a family history of his father having of pancreatic cancer in his 60s. There is no family history of colorectal cancer nor pancreatic disease otherwise. There is no family history of liver disease. Over the course of the 24 hours, he has been in the hospital he has been feeling much better today. He has been tolerating his diet without difficulty. He has had no further vomiting nor diarrhea. He has been afebrile. He does report that his urine appears more normal in color, as it had been darker and/or orange last week. Of note, he has also not been on any new medication. He is on a statin, but has been on that for a long time. MEDICATIONS: At home included atorvastatin, ezetimibe, glipizide, lisinopril, omeprazole, and pioglitazone. His medications here in the hospital include acetaminophen, Tums, Lovenox, Atarax p.r.n., sliding scale insulin, lisinopril, melatonin, omeprazole 40 mg daily, ondansetron, oxycodone p.r.n. PAST MEDICAL HISTORY: Hyperlipidemia. Hypertension. Oqk-onrtmte-vshtdmaan diabetes mellitus. Gastroesophageal reflux. He denies history of PA, stroke, lung disease or kidney disease. PAST SURGICAL HISTORY: Surgeries include appendectomy and umbilical hernia surgery. He describes having had a colonoscopy and upper endoscopy over 5 years ago through [facility]. 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 He is . 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 He does not smoke other than occasional cigar. He does not use any significant amounts of alcohol. FAMILY HISTORY: As above with father having of pancreatic cancer. There is no family history of colorectal cancer. REVIEW OF SYSTEMS: CONSTITUTIONAL: Prior to last week, he had been feeling very well with good energy, good appetite. SKIN: No rash. No pruritus. CARDIAC: No chest pain. PULMONARY: No cough. No hemoptysis. GI: As above. URINARY: No dysuria, hematuria. NEUROLOGIC: No headache or seizures. PHYSICAL EXAMINATION: GENERAL: The patient is a pleasant, alert, well-appearing male. SKIN: Warm and dry. Nonjaundiced. Anicteric sclerae. NECK: Supple without lymphadenopathy. CHEST: Clear. CARDIAC: Normal S1 and S2. ABDOMEN: Soft, nondistended, nontender without organomegaly or mass. EXTREMITIES: Without edema. LABORATORY DATA: His white count on admission was 3.8 with a repeat today of 4.4. Hemoglobin 14.5 yesterday and 13.2 today. Platelets 161,000. PT 11.8 with INR 1.0. Normal electrolytes other than potassium 3.1. BUN 10, creatinine 0.6. Blood sugar 182. Total bilirubin 6.7, direct bilirubin 5.1, AST 465, ALT 511, alkaline phosphatase 565, LDH 648, lipase 81, albumin 3.6. CEA level 1.9. Repeat laboratories today showed a decreased bilirubin of 5.5, AST 459, ALT 529, alkaline phosphatase 580, and albumin 3.3. A CA 19-9 levels pending. Hepatitis A IgM is negative, hepatitis B antigen is negative, hepatitis B surface antibody is negative, and hepatitis C antibody is negative. He did have a CT scan of the chest and abdomen that did not reveal any obvious liver disease or biliary obstruction. The gallbladder appeared unremarkable on the CT scan. The pancreas appeared normal, although there were surrounding inflammatory changes with stranding in the mesentery and some associated lymphadenopathy. There was no sign of any fluid collection or pancreatic mass. The radiologist felt this could represent some type of pancreatitis or even neoplastic infiltration. IMPRESSION: Overall, given the patient's history and workup, I suspect he probably had acute pancreatitis last week which has now gradually resolved, leaving him with some of the residual symptoms that he came to the hospital with, the findings on his CT scan, and the improving LFTs. He does not have a clear etiology for pancreatitis, but may have some gallstones that were not seen on the CT scan. He may have passed a common duct stone causing the elevated LFTs and pancreatitis. He may have had elevated LFTs as a result of some transient biliary obstruction from the edema in the pancreas. Again, the pancreas appears normal on the CT scan on admission, but that may have been due to the fact that the acute episode was already 1 week ago. At this point, he appears quite well. He has been tolerating his diet and his abdominal exam is benign. He is now pain free. He has also been afebrile. At this point, even though he appears quite well, I would complete his workup for the presumed pancreatitis with MRI and MRCP to assess for any residual common duct stone or possible pancreatic tumor, given his father's history of pancreatic cancer. I would also check a limited right upper quadrant ultrasound to rule out gallstones that were not seen on the CT scan and may have been the etiology of this pancreatitis. I will also follow up laboratories in the morning including triglyceride levels to rule out hypertriglyceridemia as a cause of his pancreatitis. If things remain stable with continued improvement of his labs and continued tolerance of his diet, he should be able to go home by tomorrow after the MRI and ultrasound. He could then be followed up in the office and have a repeat CT scan in 2 to 3 months to be sure the inflammation and lymphadenopathy seen on yesterday's CT scan have resolved. I would recommend he hold his statin medication until the LFTs normalized as well. This has all been discussed in detail with the patient and his . They are comfortable with this plan. Thank you for the consultation. MD JUAN Bazan/DAVID / [id number] MTDD
[2025-04-21 07:02] LABS: Glucose, Whole Blood 125 mg/dL (60-115)
[2025-04-21 07:21] LABS: MANUAL DIFF FLAG NO
[2025-04-21 07:23] LABS: Hematocrit 39.1 % (42.0-52.0); Hemoglobin 13.7 g/dl (14.0-18.0); Imm Gran Abs Auto 0.04 X10*3/uL (0.00-0.03); Imm Gran Pct Auto 0.6 % (0.0-0.4); Lymphocytes Absolute Auto 1.2 X10*3/uL (1.2-4.9); Mean Corpuscular HGB Conc 35.0 g/dl (31.0-36.0); Mean Corpuscular Hemoglobin 29.7 pg (27.0-33.0); Mean Corpuscular Volume 84.6 fL (80.0-98.0); NRBC Abs Auto 0.000 X10*3/uL (0.0-0.012); NRBC Pct Auto 0.0 /100WBC (0.0-0.2); Platelet Count 205 X10*3/uL (160-400); Red Blood Count 4.62 X10*6/uL (4.60-5.80); White Blood Count 6.6 X10*3/uL (4.8-10.8)
[2025-04-21 07:51] LABS: Alanine Aminotransferase 515 U/L (0-40); Albumin Level 3.2 g/dL (3.5-5.0); Alkaline Phosphatase 591 U/L (39-117); Anion Gap 12 (12-20); Aspartate Amino Transferase 302 U/L (5-37); Blood Urea Nitrogen 9 mg/dL (9-16); Calcium 8.5 mg/dL (8.4-10.2); Carbon Dioxide 26 mmol/L (22-29); Chloride 106 mmol/L (96-108); Creatinine Clr Calc Pharmacy 172.8; Estimated Glomerular Filt Rate > 60; Lipase 56 U/L (8-78); Potassium 3.4 mmol/L (3.3-5.1); Sodium 141 mmol/L (135-145); Total Protein 5.9 g/dL (6.5-8.0); Triglycerides 193 mg/dL (<150)
--- NOTE | 2025-04-21 08:24 | PC.NURSE ---
patient a&ox3, vss, rr equal/non labored, denies pain/discomfort, pt asking if/when will he get the MRI today. pharmacy contacted for medications, poc 125- no insulin required, call kwan within reach plan of care ongoing.
--- NOTE | 2025-04-21 10:13 | P.PNIM_ITS ---
Subjective Subjective Date of Service: 04/21/25 Interval History: Patient was seen and discussed with nursing. Feels well. Denies any abdominal pain. Ultrasound and MRI pending. Patient has been seen by GI. Review of Systems Denies any shortness of breath, chest pain, dizziness, lightheadedness, abdominal pain or discomfort, nausea vomiting or diarrhea Physical Exam 2 Exam: Exam: CONST: Alert and oriented, in NAD. Well nourished HEENT: Normocephalic, atraumatic, MMM, Eyes clear, Neck supple. scleral icterus. RESP: Lungs clear, RRR even and regular HEART:,RRR, S1, S2. no edema GI:Abdomen Soft NT, ND. + BS times four :Deferred SKIN: Warm dry and intact, no visible lesions or rashes NEURO:CN II-XII Intact bilaterally, Sensation intact. Speech clear PSYCH: Normal affect Vital Signs: Vital Signs: Last Vital Signs Temp 97.9 F 04/21/25 06:00 Pulse 76 04/21/25 06:00 Resp 18 04/21/25 06:00 BP 119/77 04/21/25 06:00 Pulse Ox 97 04/21/25 06:00 O2 Del Method Room Air 04/21/25 06:00 BMI result Body Mass Index 34.8 Objective Data Active Medications Acetaminophen (Acetaminophen 325 Mg Tablet) 650 mg PO Q6H PRN PRN Reason: Pain, Mild 1-3,fever,headache Calcium Carbonate (Calcium Carbonate 750 Mg Tab.Chew) 750 mg PO Q4H PRN PRN Reason: Heartburn Dextrose (Dextrose 50 % 25 Gm/50 Ml Syringe) 25 gm IVPUSH Q15M PRN; Protocol PRN Reason: per Hypoglycemia Standing Ord. Enoxaparin Sodium (Enoxaparin Sodium 40 Mg/0.4 Ml Syringe) 40 mg SUBCUT Q24H [facility] Last Admin: 04/20/25 21:33 Dose: 40 mg Documented By: DENNIS Glucose (Glucose Gel 15 Gm Gel..Gram.) 15 gm PO Q15M PRN; Protocol PRN Reason: per Hypoglycemia Standing Ord. Hydroxyzine HCl (Hydroxyzine Hcl 25 Mg Tablet) 25 mg PO Q6H PRN PRN Reason: Anxiety, mild Insulin Human Lispro (Insulin Lispro 100 Unit/Ml 3 Ml Vial) 0 unit SUBCUT QIDACHS [facility]; Protocol Last Admin: 04/21/25 07:08 Dose: Not Given Documented By: OTTONIEL Non-Admin Reason: No Insulin Coverage Lisinopril (Lisinopril 5 Mg Tablet) 5 mg PO DAILY [facility]; Protocol Last Admin: 04/21/25 08:45 Dose: 5 mg Documented By: OTTONIEL Magnesium Hydroxide (Milk Of Magnesia 30 Ml Oral.Susp) 30 ml PO DAILY PRN PRN Reason: Constipation Melatonin (Melatonin 3 Mg Tablet) 6 mg PO BEDTIME PRN PRN Reason: Insomnia Omeprazole (Omeprazole 40 Mg Capsule.Dr) 40 mg PO DAILY@0630 [facility] Last Admin: 04/21/25 05:47 Dose: 40 mg Documented By: DENNIS Ondansetron HCl (Ondansetron Hcl 4 Mg/2 Ml Vial) 4 mg IVPUSH Q8H PRN PRN Reason: Nausea and Vomiting Oxycodone HCl (Oxycodone Hcl Immed Release 5 Mg Tablet) 5 mg PO Q6H PRN PRN Reason: Pain, Severe (Pain Scale 7-10) Sodium Chloride (0.9 % Sodium Chloride Flush 3 Ml Syringe) 3 ml IVFLUSH QSHIFT [facility] Last Admin: 04/21/25 08:46 Dose: 3 ml Documented By: OTTONIEL Labs 04/21/25 07:10 04/21/25 07:10 Labs: Laboratory Results - last 24 hr 04/20/25 04/20/25 04/20/25 11:18 14:34 16:18 MCV MCH MCHC RDW Plt Count MPV Immature Gran % (Auto) Neut % (Auto) Lymph % (Auto) [place] % (Auto) Eos % (Auto) Baso % (Auto) Lymph # (Auto) [place] # (Auto) Eos # (Auto) Baso # (Auto) Abs Immat Gran (auto) Absolute Neuts (auto) Absolute Nucleated RBC Nucleated RBC % (auto) Anion Gap Estim Creat Clear Calc Estimated GFR POC Glucose 162 H 193 H 198 H Random Glucose Calcium Total Bilirubin Direct Bilirubin AST ALT Alkaline Phosphatase Total Protein Albumin Triglycerides Lipase 04/20/25 04/21/25 04/21/25 20:26 06:59 07:10 MCV 84.6 MCH 29.7 MCHC 35.0 RDW 13.6 Plt Count 205 MPV 9.2 L Immature Gran % (Auto) 0.6 H Neut % (Auto) 72.3 Lymph % (Auto) 18.3 L [place] % (Auto) 4.4 Eos % (Auto) 3.9 Baso % (Auto) 0.5 Lymph # (Auto) 1.2 Nicholas # (Auto) 0.3 Eos # (Auto) 0.3 Baso # (Auto) 0.0 Abs Immat Gran (auto) 0.04 H Absolute Neuts (auto) 4.8 Absolute Nucleated RBC 0.000 Nucleated RBC % (auto) 0.0 Anion Gap 12 Estim Creat Clear Calc 172.8 Estimated GFR > 60 POC Glucose 205 H 125 H Random Glucose 132 H Calcium 8.5 Total Bilirubin 2.7 H Direct Bilirubin 1.8 H AST 302 H ALT 515 H Alkaline Phosphatase 591 H Total Protein 5.9 L Albumin 3.2 L Triglycerides 193 H Lipase 56 Assessment and Plan (1) Elevated LFTs: Status: Acute (2) Mesenteric lymphadenopathy: Status: Acute Plan Patient is a 55-year-old male with a past medical history significant for type 2 diabetes, hypertension, hyperlipidemia and class 2 obesity, who presented to the ED due to abnormal labs with his PCP. Found to have elevated LFTs. Elevated LFTS, painless jaundice, mesenteric lymphadenopathy Recent GI illness, sx resolved but continued weakness and poor appetite LFT's trending down No leukocytosis or fever, tolerating PO without pain or nausea Abdominal US with no evidence of Cholelithiasis. MRI pending Hepatitis panel non reactive CT chest with no acute cardiopulmonary process Dr. Mckenzie following. 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 MRI pending Quality Stroke Does the patient have a stroke diagnosis?: No VTE Prior VTE?: No VTE Risk Level:: Medical - moderate - high VTE Device Contraindication: Treatment Not Indicated VTE Drug Contraindication: N/A - Med Ordered
--- NOTE | 2025-04-21 11:25 | MHC.CM.PN ---
Pt. lives with his , he does not use home health services or DME. PCP confirmed: Terrance Shin at [facility] in [place], HCP discussed, he will complete form here and it will be added to chart, naming his . He can arrange transport home at DC, DCP: home, self care. CM to follow for DC needs.
[2025-04-21 11:44] LABS: Glucose, Whole Blood 233 mg/dL (60-115)
[2025-04-21] MEDS: diazePAM 10 MG/2 ML CARTRIDGE 2.5 MG IVPUSH (12:26)
--- NOTE | 2025-04-21 12:29 | PC.NURSE ---
pt worried about clausterphobia, provider was notified pt medicated with valium upon arrival of transport to bring him to MRI. MRI was called and told he was medicated as well as he needs a wash cloth to cover his eyes for the MRI.
[2025-04-21 14:00] VITALS: BP 134/77; PULSE 79; RESP 18; TEMP 36.7; O2SAT 95
--- NOTE | 2025-04-21 14:41 | PC.NURSE ---
this nurse was notified the patient had a bed on S3, the pts provider had said this morning that the patient would discharge after MRI and US were completed which both were, this nurse messaged provider who was waiting on Dr. Mckenzie to review the MRI, however Dr. Hutchins is now reviewing for the CORRESPONDENCE CLERK Kimberli Torre. Will notify the hub as soon as a decision is made.
--- NOTE | 2025-04-21 15:11 | PM.DS ---
DS: Providers Provider Date of Service: 04/21/25 Date of admission: 04/19/25 21:25 Date of discharge: 04/21/25 Primary care physician: Terrance Shin MD Admitting clinician: Saeid Blackman Consults: 04/19/25 21:45 Consult to Gastroenterology Routine Consulting Provider: Jacky Mckenzie Reason for consultation: abnormal CT, elevated LFTs Has provider been notified: No Discharging clinician: Kimberli Torre DS: Diagnosis Discharge Diagnosis (1) Elevated LFTs: Start date: 04/21/25 Status: Acute (2) Mesenteric lymphadenopathy: Status: Acute DS: Summary Hospital Course Hospital Course: 55-year-old male with a past medical history significant for type 2 diabetes, hypertension, hyperlipidemia and class 2 obesity, who presented to the ED due to abnormal labs with his PCP. Prior to admission patient had vomiting and diarrhea for about 1 day and continue poor appetite and weakness. Diarrhea and vomiting subsided however he has had decreased appetite since. Also prior to admission he was having epigastric discomfort with palpation. Patient developed scleral icterus, he was found to have significantly elevated LFTs which are now trending down. Patient had CT scan of the chest and abdomen did not reveal any obvious liver disease or biliary obstruction. The gallbladder appeared unremarkable on the CT scan. The pancreas appeared normal, although there were surrounding inflammatory changes with stranding in the mesentery and some associated lymphadenopathy. There was no sign of any fluid collection or pancreatic mass. Patient had a chest CT with no cardiopulmonary abnormalities identified. Patient has been tolerating his diet, feels well no pain. He had no leukocytosis, stable, no anemia. Renal function within normal limits Carcinoembryonic Ag WNL, CA 19-9 <3. Patient will need follow up with primary care doctor, continue to hold cholesterol medication until LFTs normalized. Follow up GI. Status at Discharge Functional status at discharge: independent ambulation Overall status at discharge: patient is progressing back to baseline Time Attestation Total time managing care of this patient today: 30 mintues. Discharge Coordination Time (in mins): 30 Quality: Safe Use of Opioids Does Pt have an Active Cancer Diagnosis on the Problem List?: No Quality: Stroke Does the patient have a stroke diagnosis?: No Physical Exam Exam: Exam: CONST: Alert and oriented, in NAD. Well nourished HEENT: Normocephalic, atraumatic, MMM, Eyes clear, Neck supple. scleral icterus. RESP: Lungs clear, RRR even and regular HEART:,RRR, S1, S2. no edema GI:Abdomen Soft NT, ND. + BS times four :Deferred SKIN: Warm dry and intact, no visible lesions or rashes NEURO:CN II-XII Intact bilaterally, Sensation intact. Speech clear PSYCH: Normal affect Vital Signs: Vital Signs: Last Vital Signs Temp 98.1 F 04/21/25 14:00 Pulse 79 04/21/25 14:00 Resp 18 04/21/25 14:00 BP 134/77 04/21/25 14:00 Pulse Ox 95 04/21/25 14:00 O2 Del Method Room Air 04/21/25 14:00 BMI result Body Mass Index 34.8 DS: Data Data Completed and Pending Labs on day of discharge: Laboratory Results - last 24 hr 04/19/25 04/20/25 04/20/25 20:57 16:18 20:26 WBC RBC Hgb Hct MCV MCH MCHC RDW Plt Count MPV Immature Gran % (Auto) Neut % (Auto) Lymph % (Auto) [place] % (Auto) Eos % (Auto) Baso % (Auto) Lymph # (Auto) [place] # (Auto) Eos # (Auto) Baso # (Auto) Abs Immat Gran (auto) Absolute Neuts (auto) Absolute Nucleated RBC Nucleated RBC % (auto) Sodium Potassium Chloride Carbon Dioxide Anion Gap BUN Creatinine Estim Creat Clear Calc Estimated GFR POC Glucose 198 H 205 H Random Glucose Calcium Total Bilirubin Direct Bilirubin AST ALT Alkaline Phosphatase Total Protein Albumin Triglycerides Lipase CA 19-9 Antigen <3 04/21/25 04/21/25 04/21/25 06:59 07:10 11:40 WBC 6.6 RBC 4.62 Hgb 13.7 L Hct 39.1 L MCV 84.6 MCH 29.7 MCHC 35.0 RDW 13.6 Plt Count 205 MPV 9.2 L Immature Gran % (Auto) 0.6 H Neut % (Auto) 72.3 Lymph % (Auto) 18.3 L [place] % (Auto) 4.4 Eos % (Auto) 3.9 Baso % (Auto) 0.5 Lymph # (Auto) 1.2 [place] # (Auto) 0.3 Eos # (Auto) 0.3 Baso # (Auto) 0.0 Abs Immat Gran (auto) 0.04 H Absolute Neuts (auto) 4.8 Absolute Nucleated RBC 0.000 Nucleated RBC % (auto) 0.0 Sodium 141 Potassium 3.4 Chloride 106 Carbon Dioxide 26 Anion Gap 12 BUN 9 Creatinine 0.60 Estim Creat Clear Calc 172.8 Estimated GFR > 60 POC Glucose 125 H 233 H Random Glucose 132 H Calcium 8.5 Total Bilirubin 2.7 H Direct Bilirubin 1.8 H AST 302 H ALT 515 H Alkaline Phosphatase 591 H Total Protein 5.9 L Albumin 3.2 L Triglycerides 193 H Lipase 56 CA 19-9 Antigen <3 on 04/19 Discharge Plan Discharge Anticipated Discharge Date/Time: 04/21/25 15:25 Patient Disposition: Home, Self-Care Discharge Diagnosis: Abnormal LFT's Referrals: Terrance Shin MD [Primary Care Provider, Medical] - 1 Week Discharge Medications: Continued glipizide 10 mg tablet extended release 24hr 10 mg PO BID lisinopril 5 mg tablet 5 mg PO DAILY pioglitazone 30 mg tablet 30 mg PO DAILY omeprazole 40 mg Capsule,Delayed Release(Dr/Ec) 40 mg PO DAILY@0630 [facility] Silver Men [phone] mcg Tablet 1 tab PO DAILY Held atorvastatin 10 mg tablet 10 mg PO DAILY Hold Instructions: Hold until LFTs normalize, follow up with PCP meloxicam 7.5 mg tablet 7.5 mg PO DAILY Hold Instructions: Hold until seen by PCP ezetimibe 10 mg tablet 10 mg PO DAILY Hold Instructions: Hold until LFTs normalized, follow up with PCP Discharge Orders: Discharge Order (Routine); Ordered 04/21/25 Ordered By: Kimberli Torre Diet: Advance to usual diet Activity on Discharge: As tolerated Stand Alone Forms: Patient Portal Discharge page Print Language: Citizen Of [place] Care Plan Goals: Recover from elevated Liver enzymes Health Concerns: Elevated Liver function tests Plan of Treatment: As below Assessment: Elevated LFTS, painless jaundice, mesenteric lymphadenopathy Recent GI illness, sx resolved. LFT's trending down Abdominal US with no evidence of Cholelithiasis. ABD US, MRI without pancreas or bile duct issues Hepatitis panel non reactive CT chest with no acute cardiopulmonary process Will need GI follow up outpatient Follow up with PCP for repeat labs. T2DM Resume home medications Sliding scale insulin Diabetic diet HTN Continue lisinopril HLD Hold statin and ezetimibe due to elevated LFTs- Resume per PCP Class 2 obesity BMI 34.8 Weight loss encouraged
[2025-04-21 15:50] VITALS: BP 143/86; PULSE 85; RESP 20; TEMP 36.7; O2SAT 97
[2025-04-21 16:00] VITALS: BP 143/86; PULSE 85; RESP 20; TEMP 36.7; O2SAT 97
== END 2025-04-21 15:58 | disposition home or self-care (01) | DRG 663 ==
LOC: HO.ED 17:36 → HO.EDOVER 21:47 → HO.S3 04-21 14:27 → HO.EDOVER 04-21 15:43
PROVIDERS: Physician Assistant; Registered Nurse Emergency; Admitting Provider Internal Medicine; Emergency Provider Internal Medicine; PCP Pediatrics; Visit Provider Nurse Practitioner Family
DX: R59.0 Localized enlarged lymph nodes (principal); E11.9 Type 2 diabetes mellitus without complications; E66.812 Obesity, class 2; I10 Essential (primary) hypertension; R79.89 Other specified abnormal findings of blood chemistry; E78.5 Hyperlipidemia, unspecified; E87.6 Hypokalemia; Z80.0 Family history of malignant neoplasm of digestive organs; Z71.3 Dietary counseling and surveillance; Z68.34 Body mass index [BMI] 34.0-34.9, adult; Z79.84 Long term (current) use of oral hypoglycemic drugs; Z79.899 Other long term (current) drug therapy
CPT/HCPCS: 36415; 71250; 74177; 74183; 76705; 80048; 80053; 80076; 82140; 82248; 82378; 82550; 82947; 83615; 83690; 84478; 85025; 85027; 85610; 85730; 86301; 86704; 86706; 86709; 86803; 87340; 99284; A9585; J1650; J3360; Q9967

== ENCOUNTER → 2025-04-19 18:01 | Outpatient (BNV) | payer BC, SELFPAY | PROVIDERS: Emergency Provider Internal Medicine; PCP Pediatrics; Visit Provider Radiology Diagnostic Radiology | DX: R59.0 Localized enlarged lymph nodes (principal) | CPT/HCPCS: 71250 ==

== ENCOUNTER 2025-04-19 21:25 | Outpatient (BNV) | payer BC, SELFPAY | END 2025-04-21 07:00 | PROVIDERS: Admitting Provider Internal Medicine; Emergency Provider Internal Medicine; PCP Pediatrics; Visit Provider Radiology Diagnostic Radiology | DX: K65.4 Sclerosing mesenteritis (principal); K76.0 Fatty (change of) liver, not elsewhere classified | CPT/HCPCS: 74183; 76705 ==

== ENCOUNTER → 2025-04-19 21:25 | Outpatient (BNV) | payer BC, SELFPAY | PROVIDERS: Admitting Provider Internal Medicine; Emergency Provider Internal Medicine; PCP Pediatrics; Visit Provider Physician Assistant | DX: R79.89 Other specified abnormal findings of blood chemistry (principal); R59.0 Localized enlarged lymph nodes | CPT/HCPCS: 99223; 99232; 99238; 99499 ==

== ENCOUNTER 2025-05-30 12:26 | Outpatient (REF) | payer BC, SELFPAY ==
--- NOTE | ~2025-05-30 | CT_ITS ---
EXAMINATION: CT ABDOMEN AND PELVIS WITH CONTRAST CLINICAL INFORMATION: Abnormal liver function tests. COMPARISON: April 19, 2025. Correlated to MRI abdomen dated April 21, 2025. TECHNIQUE: Multidetector volumetric images were obtained from the superior aspect of the liver through the pubic symphysis following administration 85 mL of Omnipaque 350 intravenous contrast. Sagittal and coronal reformatted images were obtained on the technologist's workstation. Oral contrast: Yes This CT examination was performed using dose optimization techniques as appropriate, variously including the following: *Automated exposure control *Adjustment of mA and/or kV according to patient size (this includes techniques or standardized protocols for targeted exams where dose is matched to indication/reason for exam; i.e. extremities or head) *Use of iterative reconstruction technique DLP: 604 mGy centimeter. FINDINGS: LUNG BASES: No acute airspace disease. LIVER, GALLBLADDER, AND BILIARY TREE: Liver measures 15 cm. No focal enhancing mass. Main portal veins are patent. No intrahepatic biliary ductal dilatation. Nondistended gallbladder without pericholecystic fluid collection or gallbladder wall thickening. No extrahepatic biliary ductal dilatation. PANCREAS: No focal mass. No main pancreatic ductal dilatation. No peripancreatic fluid collection. SPLEEN: 11 cm. Small accessory spleen. ADRENAL GLANDS: No nodular lesion. KIDNEYS AND URETERS: No renal mass. No hydronephrosis. No gross nephrolithiasis. Normal enhancement pattern of the renal cortex. BLADDER: Collapsed with a small wall thickening. GASTROINTESTINAL TRACT: Status post cholecystectomy. No intestinal obstruction pattern. No pneumatosis intestinalis. No pneumoperitoneum. No ascites. No intestinal wall thickening. Abundant stool. ABDOMINAL WALL: Diastases abdominal rectus muscles in the periumbilical region with protrusion of the intra-abdominal contents. LYMPH NODES: Prominent mesenteric lymph nodes with mesenteric edema pattern. No gross retroperitoneal lymphadenopathy. VASCULAR: No aneurysm or dissection, abdominal aorta. No gross calcified plaques. PELVIC VISCERA: Not enlarged. OSSEOUS STRUCTURES: Multilevel thoracolumbar spondylosis. Superior endplate compression deformity representing 20% volume loss at L2 likely old. Sclerosis at the endplates of L5-S1. No acute fracture or gross listhesis in the axial skeleton. CT/CT abdomen pelvis w IV con IMPRESSION: Mesenteric panniculitis. There is a lengthy differential diagnostic considerations. Lymphoproliferative disorder should be considered.. Fleischner guidelines were followed. Electronically signed by: Hair Oliver MD 05/30/2025 03:24 PM EDT RP
[2025-05-30] MEDS: iohexoL 350 MG/ML 100 ML INFUS..BTL IV (14:47)
[2025-05-30] MEDS: Barium Sulfate Oral (Berry) 450 ML ORAL.SUSP 900 ML PO (14:48)
--- OUTSIDE RECORDS SUMMARY | 2025-05-30 15:19 | XMS_ITS | Clinical Summary ---
Author Organization [facility] [address] [place] [address] [place] [address] Phone Care Team Providers [employer] Consultant Name Role Phone Omaira Shin MD Primary Care Provider [phone] Allergies Active Allergy Reactions Criticality Noted Date Comments Metformin Diarrhea Medium 09/20/2022 Medications ACCU-CHEK SOFTCLIX LANCETS MISC USE TO CHECK BLOOD SUGARS 4 TIMES DAILY 12/24/19 23 Active diclofenac (VOLTAREN) 1 % topical gel Apply 2 g topically 2 times daily. 03/24/20 23 Active ibuprofen (ADVIL,MOTRIN) 600 mg tablet TAKE 1 TABLET BY MOUTH EVERY 8 HOURS NEEDED FOR PAIN 05/31/20 20 Active blood sugar diagnostic (Accu-Chek Mala Plus test strp) test strip USE TO CHECK BLOOD SUGARS 4 TIMES DAILY 12/24/19 23 Active omeprazole OTC (PriLOSEC OTC) 20 mg EC tablet Take by mouth daily Active multivit-min/fe rrous fumarate (MULTI VITAMIN ORAL) Take by mouth 1 (one) time each day. Active meloxicam (MOBIC) 7.5 mg tablet TAKE 1 TABLET BY MOUTH 1 TIME EACH DAY. 30 tablet 2 01/28/20 25 Active atorvastatin (LIPITOR) 10 mg tabletIndicatio ns:Type 2 diabetes mellitus without complication, without long-term current use of insulin (CMS/HCC V24, CMS/HCC V28) TAKE 1 TABLET BY MOUTH 1 TIME EACH DAY. 90 tablet 03/21/20 25 Active pioglitazone (Actos) 45 mg tabletIndicatio ns:Type 2 diabetes mellitus with hyperglycemia, without long-term current use of insulin ([facility] V24, [facility] V28) Take 1 tablet (45 mg total) by mouth 1 (one) time each day. 30 each 04/25/20 25 026 Active metFORMIN XR (GLUCOPHAGE-XR) 500 mg 24 hr tabletIndicatio ns:Type 2 diabetes mellitus with hyperglycemia, without long-term current use of insulin ([facility] V24, CMS/[facility] V28) Take 1 tablet (500 mg total) by mouth 1 (one) time each day with breakfast. Do not crush, chew, or split. 90 each 04/25/20 25 Active ezetimibe (ZETIA) 10 mg tablet TAKE 1 TABLET BY MOUTH EVERY DAY 90 tablet 05/09/20 25 Active glipiZIDE (GLUCOTROL XL) 10 mg 24 hr tabletIndicatio ns:Type 2 diabetes mellitus without complication, without long-term current use of insulin ([facility] V24, [facility] V28) TAKE 1 TABLET (10 MG TOTAL) BY MOUTH 2 (TWO) TIMES A DAY. DO NOT CRUSH, CHEW, OR SPLIT. 180 tablet 05/22/20 25 Active lisinopriL (PRINIVIL,ZESTR IL) 5 mg tabletIndicatio ns:Essential hypertension Take 1 tablet (5 mg total) by mouth 1 (one) time each day. 90 tablet 05/22/20 25 Active lisinopriL (PRINIVIL,ZESTR IL) 5 mg tabletIndicatio ns:Essential hypertension Take 1 tablet (5 mg total) by mouth 1 (one) time each day. 90 tablet 1 12/21/19 25 025 Discontinued(Re order) ezetimibe (ZETIA) 10 mg tablet TAKE 1 TABLET BY MOUTH EVERY DAY 90 tablet 02/08/20 25 025 Discontinued glipiZIDE (GLUCOTROL XL) 10 mg 24 hr tabletIndicatio ns:Type 2 diabetes mellitus without complication, without long-term current use of insulin ([facility] V24, [facility] V28) TAKE 1 TABLET (10 MG TOTAL) BY MOUTH 2 (TWO) TIMES A DAY. DO NOT CRUSH, CHEW, OR SPLIT. 180 tablet 02/22/20 25 025 Discontinued Active Problems Problem Noted Date Diagnosed Date Mesenteric adenitis 04/25/2025 Type 2 diabetes mellitus wit h hyperglycemia, without long-term current use of insulin ([facility] V24, [facility] V28) 08/19/2024 Hyperlipidemia 08/19/2024 Essential hypertension 12/09/2021 Diabetes mellitus type II, c ontrolled ([facility] V24, [facility] V28) 05/12/2020 Overview (06/08/2024): 05/27 Obesity (BMI 30-39.9) 05/11/2019 Abdominal pain 04/04/2019 Overview (06/08/2024): 04/24. Abnormal CT. bx benign. Mesenteric adenitis. GI upper and lower endoscopy. Antral gastritis Elevated LFTs 04/04/2019 Overview (06/08/2024): GI 09/25. prob NAFLD Fatty liver 06/12/2013 Overview (06/08/2024): Elevated LFT's Low testosterone 06/12/2013 Overview (06/08/2024): Ref endocrine 09/20. Pt did not schedule. 09/22. 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 CT FNA---Benign Encounters Date Type Department Care Team Description 04/25/2025 8:45 AM EDT Office Visit Adult [address] [phone] Merritt Rico PA Mesenteric adenitis (Primary Dx); Elevated LFTs; Type 2 diabetes mellitus with hyperglycemia, without long-term current use of insulin (CMS/[facility] V24, CMS/HCC V28); Fatty liver 04/19/2025 9:00 AM EDT Office Visit [address] [phone] Raquel Owusu NP Generalized abdominal pain (Primary Dx) 04/19/2025 Telephone Adult [address] [phone] Omaira Shin MD from Last 3 Months Immunizations Name Administration Dates Next Due Moderna SARS-CoV-2 COVID-19, mRNA, LNP-S, preservative free 10/03/2020 Pneumococcal polysaccharide 23 valent (Pneumovax 23) 2yo and older 11/29/2021 Tdap Tetanus diptheria acell ular pertussis (Boostrix; Adacel) 7yo and older 08/19/2024,02/11/2014,11/12/2009 Surgical History Surgery Date Site/Laterality Comments APPENDECTOMY 12/14 PROCEDURE: MT APPENDECTOMY COLONOSCOPY 07/12/2018 PROCEDURE: HISTORICAL COLONOSCOPY; COMMENT: normal, with normal terminal ileum; repeat in 10 yrs ESOPHAGOGASTRODUODENOSCOPY 07/12/2018 PROCEDURE: MT ESOPHAGOGASTRODUODENOSCOPY TRANSORAL DIAGNOSTIC; COMMENT: long erosion of gastric body; mild nodular antritis and duodenitis; bxys show milod gastritis without H. pylori HERNIA REPAIR 07/2020 PROCEDURE: HISTORICAL HERNIA REPAIR/ROBERT Medical History Medical History Date Comments Abnormal CT of the abdomen 04/16/2018 DX:Ab normal CT of the abdomen Cervicalgia 12/16/2016 DX:Cervicalgia Colon cancer screening 07/12/2018 DX:Colon cancer screening; COMMENT: 07/25 colonoscopy neg. Repeat 10 yrs. 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 Pt did not schedule. 09/22. Low total but normal Free--obesity Family History Medical History Relation Name Comments Diabetes Brother Diabetes Mother Other: heart problem Mother Relation Name Status Comments Brother Mother Social History Tobacco Use Types Packs/Day Years Used Date Smoking Tobacco: Never Smokeless Tobacco: Never Tobacco Cessation:Counseling Given: Not Answered Alcohol Use Standard Drinks/Week Comments Yes 0 (1 standard drink = 0.6 oz pur e alcohol) Sex and Gender Information Value Date Recorded Sex Assigned at Not on file Legal Sex Male 9:58 PM EST Gender Identity Not on file Sexual Orientation Not on file Obstetrics History Last Filed Vital Signs Vital Sign Reading Time Taken Comments Blood Pressure 105/81 04/25/2025 8:26 AM EDT Pulse 79 04/25/2025 8:26 AM EDT Temperature 36.4 C (97.5 F) 12/20/2024 8:50 AM EDT Respiratory Rate 18 04/25/2025 8:26 AM EDT Oxygen Saturation - - Inhaled Oxygen Concentration - - Weight 112 kg (246 lb 12.8 oz) 04/25/2025 8:26 A M EDT Height 177.8 cm (5' 10 ) 04/25/2025 8:26 AM EDT Body Mass Index 35.41 04/25/2025 8:26 AM EDT Plan of Treatment Upcoming Encounters Date Type Department Care Team (Late st Contact Info) Description 07/28/2025 8:30 AM EST Office Visit Adult Medicine - [address] [phone] Raquel Owusu NP [address], [place] [phone] 08/24/2025 8:30 AM EST Office Visit Orthopedics - [place] [address] [place] [phone] Esequiel Crews PA [address] [place] [phone] Health Maintenance Due Date Last Done Comments Hepatitis B Vaccines (1 of 3 - 19+ 3-dose series) 1989 Zoster Vaccines (1 of 2) 2020 HIV Screening 08/16/2022 Social Influencers of Health Screening 08/16/2022 Pneumococcal Vaccine: 50+ Years (2 of 2 - PCV) 11/29/2022 11/29/2021 Diabetes: Annual Foot Exam 07/27/2024 07/27/2023 Diabetes: Annual Retina Eye Exam 08/18/2024 08/18/2023 Depression Screening 09/07/2024 COVID-19 Vaccine ( - 2024- season) 2025 10/17/2020, 10/03/2020, 09/19/2020 Influenza Vaccine (#1) 2025 Diabetes: Blood Sugar Control Test (HGBA1C) 10/20/2025 04/19/2025, 12/16/2024, 08/16/2024, Additional history exists Diabetes: Annual Urine Albumin-Creatinine Ratio (uACR) 12/16/2025 12/16/2024, 11/20/2023 Diabetes: Annual GFR (Glomerular Filtration Rate) 04/19/2026 04/19/2025, 12/16/2024, 11/20/2023 Hypertension/CHF/CAD Annual BMP Blood Test 04/19/2026 04/19/2025, 12/16/2024, 11/20/2023 Colorectal Cancer Screening: Colonoscopy 07/12/2028 07/12/2018 Cholesterol Screening (Lipid Panel) 04/19/2030 04/19/2025, 12/16/2024, 05/18/2024, Additional history exists DTaP,Tdap,and Td Vaccines (4 - Td or Tdap) 08/19/2034 08/19/2024, 02/11/2014, 11/12/2009 Hepatitis C Screening Completed 09/10/2015 HIB Vaccines Aged Out No longer eligi ble based on patient's age to complete this topic HPV Vaccines Aged Out No longer eligi ble based on patient's age to complete this topic Hepatitis A Vaccines Aged Out No long er eligible based on patient's age to complete this topic IPV Vaccines Aged Out No longer eligi ble based on patient's age to complete this topic MMR Vaccines Aged Out No longer eligi ble based on patient's age to complete this topic Meningococcal ACWY Vaccine Aged Out N o longer eligible based on patient's age to complete this topic Meningococcal B Vaccine Aged Out No l onger eligible based on patient's age to complete this topic RSV Immunization Patients Under 20 months Aged Out No longer eligible based on patient's age to complete this topic Varicella Vaccines Aged Out No longer eligible based on patient's age to complete this topic Procedures Procedure Name Priority Date/Time Associated Diagnosis Comments CBC WITH AUTO DIFFERENTIAL Routine 04/25/2025 9:01 AM EDT Mesenteric adenitis CBC AND DIFFERENTIAL Routine 04/25/2025 9:01 AM EDT Mesenteric adenitis HEPATIC FUNCTION PANEL Routine 04/25/2025 9:01 AM EDT Mesenteric adenitis LIPASE Routine 04/19/2025 9:40 AM EDT Generalized abdominal pain LIPID PANEL WITH REFLEX TO DIRECT LDL Routine 04/19/2025 9:40 AM EDT Type 2 diabetes mellitus without complication, without long-term current use of insulin ([facility]/HCC V24, CMS/HCC V28) Essential hypertension Hyperlipidemia, unspecified hyperlipidemia type HEMOGLOBIN A1C Routine 04/19/2025 9:40 AM EDT Type 2 diabetes mellitus without complication, without long-term current use of insulin (CMS/HCC V24, CMS/HCC V28) Essential hypertension COMPREHENSIVE METABOLIC PANEL Routine 04/19/2025 9:40 AM EDT Type 2 diabetes mellitus without complication, without long-term current use of insulin (CMS/HCC V24, CMS/HCC V28) Essential hypertension MICROALBUMIN CREATININE URINE RATIO Routine 12/16/2024 10:05 AM EDT Type 2 diabetes mellitus without complication, without long-term current use of insulin ([facility] V24, CMS/[facility] V28) DIABETES EYE EXAM Routine 08/18/2023 DIABETES FOOT EXAM Routine 07/27/2023 COLONOSCOPY Routine 07/12/2018 HEPATITIS C SCREENING Routine 09/10/2015 from Last 3 Months or Most Recently Relevant to Health Maintenance Results * (ABNORMAL) CBC auto differential (04/25/2025 9:01 AM EDT) WBC 7.9 4.8 - 10.8 K/mcL LAB HEMETOLOGY METHOD 04/25/2025 11:44 AM [facility] RBC 4.90 4.50 - 5.50 M/mcL LAB HEMETOLOGY METHOD 04/25/2025 11:44 AM [facility] Hemoglobin 14.8 13.5 - 17.5 g/dL LAB HEMETOLOGY METHOD 04/25/2025 11:44 AM [facility] Hematocrit 44.7 42.0 - 54.0 % LAB HEMETOLOGY METHOD 04/25/2025 11:44 AM [facility] MCV 90.7 79.0 - 98.0 FL LAB HEMETOLOGY METHOD 04/25/2025 11:44 AM [facility] MCH 30.0 27.0 - 32.0 pcg LAB HEMETOLOGY METHOD 04/25/2025 11:44 AM [facility] MCHC 33.1 32.0 - 37.0 g/dL LAB HEMETOLOGY METHOD 04/25/2025 11:44 AM [facility] RDW 14.1 11.0 - 15.0 % LAB HEMETOLOGY METHOD 04/25/2025 11:44 AM [facility] Platelets 361 130 - 400 K/mcL LAB HEMETOLOGY METHOD 04/25/2025 11:44 AM [facility] MPV 9.2 7.0 - 11.0 FL LAB HEMETOLOGY METHOD 04/25/2025 11:44 AM [facility] NRBC 0.0 <1.0 % LAB HEMETOLOGY METHOD 04/25/2025 11:44 AM [facility] NRBC Absolute 0.00 <0.10 K/mcL LAB HEMETOLOGY METHOD 04/25/2025 11:44 AM [facility] Neutrophils Relative 59.2 % LAB HEMETOLOGY METHOD 04/25/2025 11:44 AM [facility] Lymphocytes Relative 27.9 % LAB HEMETOLOGY METHOD 04/25/2025 11:44 AM [facility] Monocytes Relative 7.4 % LAB HEMETOLOGY METHOD 04/25/2025 11:44 AM [facility] Eosinophils Relative 4.4 % LAB HEMETOLOGY METHOD 04/25/2025 11:44 AM [facility] Basophils Relative 0.6 % LAB HEMETOLOGY METHOD 04/25/2025 11:44 AM [facility] Immature Granulocytes Relative 0.5 % LAB HEMETOLOGY METHOD 04/25/2025 11:44 AM [facility] Neutrophils Absolute 4.69 1.50 - 7.00 K/mcL LAB HEMETOLOGY METHOD 04/25/2025 11:44 AM [facility] Lymphocytes Absolute 2.21 1.00 - 5.00 K/mcL LAB HEMETOLOGY METHOD 04/25/2025 11:44 AM [facility] Monocytes Absolute 0.59 0.20 - 1.00 K/mcL LAB HEMETOLOGY METHOD 04/25/2025 11:44 AM EDT [facility] Eosinophils Absolute 0.35 0.00 - 0.50 K/[facility] LAB HEMETOLOGY METHOD 04/25/2025 11:44 AM EDT [facility] Basophils Absolute 0.05 0.00 - 0.20 K/[facility] LAB HEMETOLOGY METHOD 04/25/2025 11:44 AM EDT [facility] Immature Granulocytes Absolute 0.04(H) 0.00 - 0.03 K/mcL LAB HEMETOLOGY METHOD 04/25/2025 11:44 AM EDT [facility] Blood Venous blood specimen / Unknown Venipuncture / Unknown 04/25/2025 9:01 AM EDT 04/25/2025 9:01 AM EDT Merritt ELAINE LAB BLOOD ORDERABLES Final Re sult [facility] [address] [place] [address], * (ABNORMAL) Hepatic function panel (04/25/2025 9:01 AM EDT) Total Protein 6.7 6.0 - 8.0 g/dL LAB CHEMISTRY METHOD 04/25/2025 1:01 PM EDT [facility] Albumin 3.6 3.2 - 5.0 g/dL LAB CHEMISTRY METHOD 04/25/2025 1:01 PM [facility] Total Bilirubin 1.2 0.0 - 1.4 mg/dL LAB CHEMISTRY METHOD 04/25/2025 1:01 PM [facility] Bilirubin, Direct 0.8(H) 0.0 - 0.3 mg/dL LAB CHEMISTRY METHOD 04/25/2025 1:01 PM EDT [facility] Bilirubin, Indirect 0.4 0.0 - 1.1 mg/dL LAB CHEMISTRY METHOD 04/25/2025 1:01 PM EDT [facility] ALT (SGPT) 240(H) 10 - 60 unit/L LAB CHEMISTRY METHOD 04/25/2025 1:01 PM [facility] AST (SGOT) 71(H) 10 - 42 unit/L LAB CHEMISTRY METHOD 04/25/2025 1:01 PM EDT [facility] Comment:Results verified by repeat testing Alkaline Phosphatase 486(H) 42 - 121 unit/L LAB CHEMISTRY METHOD 04/25/2025 1:01 PM [facility] Blood Venous blood specimen / Unknown Venipuncture / Unknown 04/25/2025 9:01 AM EDT 04/25/2025 9:01 AM EDT us Merritt ELAINE LAB BLOOD ORDERABLES Final Re sult [facility] [address] [place] [address], [place] [phone] * (ABNORMAL) Lipid panel with reflex to direct LDL (04/19/2025 9:40 AM EDT) Cholesterol 129 0 - 200 mg/dL LAB CHEMISTRY METHOD 04/19/2025 12:38 PM EDT [facility] Comment:Icterus present Triglycerides 328(H) 0 - 150 mg/dL LAB CHEMISTRY METHOD 04/19/2025 12:38 PM T [facility] Comment:Icterus present HDL 10(L) >=40 mg/dL LAB CHEMISTRY METHOD 04/19/2025 12:38 PM [facility] LDL Calculated 53 0 - 100 mg/dL LAB CHEMISTRY METHOD 04/19/2025 12:38 PM [facility] Comment:Estimated LDL Calcul ated using equation: Total cholesterol - HDL cholesterol - (Triglycerides/5) VLDL Cholesterol Denny 65.6 mg/dL LAB CHEMISTRY METHOD 04/19/2025 12:38 PM EDT [facility] Non HDL Chol. (LDL+VLDL) 119 <145 mg/dL LAB CHEMISTRY METHOD 04/19/2025 12:38 PM EDT [facility] Chol/HDL Ratio 12.9(H) 0.0 - 4.4 LAB CHEMISTRY METHOD 04/19/2025 12:38 PM EDT [facility] Blood Venous blood specimen / Unknown Venipuncture / Unknown 04/19/2025 9:40 AM EDT 04/19/2025 9:40 AM EDT Merritt ELAINE LAB BLOOD ORDERABLES Final Re sult Performing Organization Address [facility]/ZIP Co de Phone Number [facility] [address] [place] [address], * (ABNORMAL) Lipase (04/19/2025 9:40 AM EDT) Lipase 99(H) 13 - 75 unit/L LAB CHEMISTRY METHOD 04/19/2025 12:38 PM EDT [facility] Blood Venous blood specimen / Unknown Venipuncture / Unknown 04/19/2025 9:40 AM EDT 04/19/2025 9:40 AM EDT Raquel Owusu NP LAB BLOOD ORDERABLES Final Res ult Performing Organization Address [facility]/ZIP Co de Phone Number [facility] [address] [place] [address], [place] [phone] * (ABNORMAL) Hemoglobin A1c (04/19/2025 9:40 AM EDT) Hemoglobin A1C 7.8(H) <6.5 % LAB CHEMISTRY METHOD 04/19/2025 1:54 PM EDT [facility] Mean Bld Glu Estim. 177 mg/dL LAB CHEMISTRY METHOD 04/19/2025 1:54 PM [facility] Blood Venous blood specimen / Unknown Venipuncture / Unknown 04/19/2025 9:40 AM EDT 04/19/2025 9:40 AM EDT us Merritt ELAINE LAB BLOOD ORDERABLES Final Re sult [facility] [address] [place] [address], [place] [phone] * (ABNORMAL) Comprehensive metabolic panel (04/19/2025 9:40 AM EDT) Sodium 135 133 - 145 mmol/L LAB CHEMISTRY METHOD 04/19/2025 12:38 PM [facility] Potassium 3.2(L) 3.5 - 5.5 mmol/L LAB CHEMISTRY METHOD 04/19/2025 12:38 PM [facility] Chloride 98 96 - 110 mmol/L LAB CHEMISTRY METHOD 04/19/2025 12:38 PM [facility] CO2 31 21 - 32 mmol/L LAB CHEMISTRY METHOD 04/19/2025 12:38 PM [facility] Anion Gap 6 3 - 11 LAB CHEMISTRY METHOD 04/19/2025 12:38 PM [facility] Glucose 153(H) 70 - 100 mg/dL LAB CHEMISTRY METHOD 04/19/2025 12:38 PM [facility] BUN 10 5 - 25 mg/dL LAB CHEMISTRY METHOD 04/19/2025 12:38 PM [facility] Creatinine 0.81 0.70 - 1.30 mg/dL LAB CHEMISTRY METHOD 04/19/2025 12:38 PM [facility] eGFR 104 >=60 mL/min/1. 73m2 LAB CHEMISTRY METHOD 04/19/2025 12:38 PM [facility] Comment:Calculation based on the Chronic Kidney Disease Epidemiology Collaboration (CKD-EPI) equation refit without adjustment for race. BUN/Creatinine Ratio 12.3 LAB CHEMISTRY METHOD 04/19/2025 12:38 PM EDT [facility] Calcium 8.6 8.5 - 10.5 mg/dL LAB CHEMISTRY METHOD 04/19/2025 12:38 PM EDT [facility] AST (SGOT) 457(H) 10 - 42 unit/L LAB CHEMISTRY METHOD 04/19/2025 12:38 PM EDT [facility] ALT (SGPT) 493(H) 10 - 60 unit/L LAB CHEMISTRY METHOD 04/19/2025 12:38 PM EDT [facility] Alkaline Phosphatase 573(H) 42 - 121 unit/L LAB CHEMISTRY METHOD 04/19/2025 12:38 PM EDT [facility] Total Protein 6.0 6.0 - 8.0 g/dL LAB CHEMISTRY METHOD 04/19/2025 12:38 PM EDT [facility] Albumin 3.2 3.2 - 5.0 g/dL LAB CHEMISTRY METHOD 04/19/2025 12:38 PM EDT [facility] Total Bilirubin 6.9(H) 0.0 - 1.4 mg/dL LAB CHEMISTRY METHOD 04/19/2025 12:38 PM [facility] Blood Venous blood specimen / Unknown Venipuncture / Unknown 04/19/2025 9:40 AM EDT 04/19/2025 9:40 AM EDT us Merritt ELAINE LAB BLOOD ORDERABLES Final Re sult [facility] [address] [place] [address], * Microalbumin creatinine urine ratio (12/16/2024 10:05 AM EDT) Creatinine, Urine 83.0 mg/dL LAB CHEMISTRY METHOD 12/16/2024 12:47 PM EDT [facility] Microalb, Ur <5.0 0.0 - 29.0 mg/L LAB CHEMISTRY METHOD 12/16/2024 12:47 PM EDT [facility] Microalb/Creat Ratio <6 <30 mg/g creat LAB CHEMISTRY METHOD 12/16/2024 12:47 PM EDT [facility] Urine Urine specimen obtained by clean catch procedure / Unknown Non-blood Collection / Unknown 12/16/2024 10:05 AM EDT 12/16/2024 10:05 AM EDT [facility] URINE ORDERABLES Final Result [facility] [address] [place] [address], * Diabetes Eye Exam (08/18/2023) [facility] Diabetes: Annual Retina Eye Exam abstracted [facility] Provider HEALTH MAINTENANCE Final Result * Diabetes Foot Exam (07/27/2023) [facility] Diabetes: Annual Foot Exam abstracted [facility] Frank NEVES HEALTH MAINTENANCE Final Result * Colonoscopy (07/12/2018) [facility] Colonoscopy no interpretation , abstracted Anatomical Region Laterality Modality Other [facility] Provider HEALTH MAINTENANCE Final Result * Hepatitis C Screening (09/10/2015) [facility] Hepatitis C Screening abstracted [facility] Provider HEALTH MAINTENANCE Final Result from Last 3 Months or Most Recently Relevant to Health Maintenance [facility] Care Teams [employer] Consultant Relationship Specialty Start Date End Date Omaira Shin MD [address] [place] [id number] PCP - General 09/30/07
--- OUTSIDE RECORDS SUMMARY | 2025-05-30 15:19 | XMS_ITS | Patient Health Record ---
Author Organization [facility] Address [address] [place] [id number] Care Team Providers Care Crna Name Role Phone Terrance Kaiser MD Primary Care Provider Unavail able Jacky Mckenzie [facility] [phone] Results Component Value Reference Range Notes MR abdomen wo/w con Reviewed date:04/26/2025 12:09:56 AM Interpretation: Performing Lab: Notes/Report: [facility] [address] [place] [id number] Magnetic Resonance Report Signed Patient: Xavi Hutton MR#: [id number] : 1970 Acct:[id number] Age/Sex: 55 / M ADM Date: 04/19/25 Loc: [facility]: Kimberli Torre [facility] Ordering Physician: Jacky Mckenzie MD Date of Service: 04/21/25 Procedure(s): MR abdomen wo/w con Accession Number(s): [id number] cc: TERRANCE KAISER MD; Jacky Mckenzie MD EXAMINATION: MR ABDOMEN WITHOUT AND WITH CONTRAST CLINICAL INFORMATION: Abnormal liver function tests. Lymphadenopathy. COMPARISON: Correlated to CT dated April 19, 2025 TECHNIQUE: MR abdomen was performed without and with use of 9.7 mL intravenous (Gadavist) gadolinium contrast. Postcontrast images are performed in multiphase dynamic sequences. Imaging was performed in 3 planes. No reported immediate complications FINDINGS: LUNG BASES: No enhancing mass. LIVER, GALLBLADDER, AND BILIARY TREE: Liver measures 15 cm. No enhancing lesion. Main portal vein and hepatic veins and intrahepatic portion of the IVC are patent. No intrahepatic biliary ductal dilatation. Gallbladder is fluid-filled without distention. No pericholecystic fluid collection or gallbladder wall thickening. Common bile duct measures 3 mm. PANCREAS: No focal mass. No peripancreatic fluid collection. No main pancreatic ductal dilatation. Reduced volume of the parenchyma. SPLEEN: 12 cm. Accessory spleen. No focal mass. ADRENAL GLANDS: No nodular lesions. KIDNEYS AND URETERS: Subcentimeter cyst mostly in the left kidney. Normal enhancement pattern of the parenchyma. No focal mass. No hydronephrosis. The ureters are not dilated. GASTROINTESTINAL TRACT: Abundant stool, large intestine. No intestinal obstruction pattern. Food contents in the stomach. No ascites. ABDOMINAL WALL: Diastases abdominal rectus muscles and the proper umbilical region and likely status post mesh. LYMPH NODES: Prominent mesenteric lymph nodes with the edema pattern. VASCULAR: No aneurysm or dissection, abdominal aorta. OSSEOUS STRUCTURES: Multilevel thoracolumbar spondylosis. Probable intraosseous hemangioma at L1 and L2. Disc herniation versus disc bulging at L5-S1 no fully evaluated. MR/MR abdomen wo/w con IMPRESSION: Mesenteric panniculitis. There is a lengthy differential diagnostic considerations which include lymphoproliferative disorder such as lymphoma among other etiologies. No enhancing mass, hepatic or splenic. Splenomegaly, mild. 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 Reviewed date:04/26/2025 12:15:07 AM Interpretation: Performing Lab: Notes/Report: [address] [address] Ultrasound Report Signed Patient: Xavi Hutton MR#: [id number] : 1970 Acct:[id number] Age/Sex: 55 / M ADM Date: 04/19/25 Loc: [facility]: Kimberli Torre [facility] Ordering Physician: Jacky Mckenzie MD Date of Service: 04/21/25 Procedure(s): US abdomen limited Accession Number(s): [id number] cc: TERRANCE KAISER MD; Jacky Mckenzie MD EXAMINATION: US ABDOMEN LIMITED HISTORY: ?resolving pancreatitis, abnl LFT's, R/O gallstones TECHNIQUE: Real-time grayscale ultrasound imaging of the liver, gallbladder, and pancreas was performed and images were reviewed. COMPARISON: Correlation is made with a CT of the abdomen with contrast dated 04/19/2025. FINDINGS: Liver: The right lobe of the liver measures 15.8 cm in size. The left lobe of the liver measures 10.6 cm in size. The liver demonstrates increased echotexture, consistent with steatosis. No focal mass or intrahepatic biliary ductal dilatation is identified. There is normal hepatopedal flow in the portal vein. Gallbladder and biliary tree: There is a 3 mm gallbladder polyp. The gallbladder is otherwise unremarkable, without evidence of calculi, wall thickening, or pericholecystic fluid. There is no sonographic Rooney sign. The common bile duct measures 8 mm in. Pancreas: The pancreatic head, neck, and body are unremarkable. The pancreatic tail is obscured by bowel gas. There is no free fluid in the right upper quadrant. US/US abdomen limited IMPRESSION: 3 mm gallbladder polyp. No evidence of cholelithiasis. Mild prominence of the common bile duct. If there is clinical concern for choledocholithiasis, MRCP could be performed. 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 For Referral No Information Problems Problem Type SNOMED Code ICD Code Onset Dates Problem Status W/U Status Risk Notes Problem CT of abdomen abnormal (1370899231860 9107) Abnormal CT of the abdomen (R93.5) Active confirmed Problem Liver function tests abnormal (054483022) Abnormal liver function test (R94.5) Active confirmed Encounters Encounter Location Date Provider Diagnosis [facility] [address] [facility] [address] [place] [id number] 04/26/2025 Jacky Mckenzie Abnormal liver function test R94.[address] of the abdomen R93.5 Assessments Encounter Date Diagnosis (ICD Code) Assessment Notes Treatment Notes Treatment Clinical Notes Section Notes 04/26/[address] of the abdomen (ICD-10 - R93.5) 04/26/2025 Abnormal liver function test (ICD-10 - R94.5) Plan Of Treatment Pending Test Test Name Order Date BUN 04/26/2025 LIVER PROFILE 04/26/2025 CT ABD & PELVIS WITH CONTRAST 04/26/2025 Creatinine 04/26/2025 Lipase 04/26/2025 Next Appt Details Provider Name:Jacky Mckenzie , 08/15/2025 09:30:00 AM, [address] [place] [address], [address], [place], [address], Insurance Providers Payer Name Payer Address Payer Phone Subscriber Number Group Number Insured Name Patient Relationship to Insured Coverage Start Date Coverage End Date [facility] [address] [place] [address] [phone] [id number] [id number] [id number] Self - patient is the insured
[2025-06-01 07:19] LABS: Creatinine POC 1.0 mg/dL (0.5-1.4); GFR POC > 60
== END 2025-05-30 12:27 | disposition home or self-care (01) ==
LOC: HO.CT 12:26
PROVIDERS: PCP Pediatrics; Visit Provider Internal Medicine
DX: R94.5 Abnormal results of liver function studies (principal); R93.5 Abnormal findings on diagnostic imaging of other abdominal regions, including retroperitoneum
CPT/HCPCS: 74177; 82565; Q9967

== ENCOUNTER → 2025-05-30 14:30 | Outpatient (BNV) | payer BC, SELFPAY | PROVIDERS: PCP Pediatrics; Visit Provider Radiology Diagnostic Radiology | DX: K65.4 Sclerosing mesenteritis (principal) | CPT/HCPCS: 74177 ==